=== PATIENT | female | born 1990 | race Caucasian/White ===

== ENCOUNTER 2017-10-03 16:43 | Inpatient (IN) | payer OTHER ==
[2017-10-03] MEDS ORDERED: Ondansetron 4 MG/2 ML SDV IVPUSH PRN (18:17)
[2017-10-03] MEDS ORDERED: Sodium Chloride 0.9% 10 ML Syringe FLUSH PRN (18:17)
[2017-10-03] MEDS ORDERED: Acetaminophen 325 MG Tab PO PRN (18:17)
[2017-10-03] MEDS ORDERED: Misoprostol 100 MCG Tab VAG PRN (18:17)
[2017-10-03] MEDS ORDERED: Lactated Ringers 1,000 ML IV SCH (18:30)
[2017-10-03] MEDS ORDERED: Oxytocin/Lactated Ringers 10 UNIT/1,000 ML BAG IV SCH (18:30)
--- NOTE | 2017-10-03 18:35 | PCM.LDHP ---
L&D History of Present Illness - General Date of Service: 10/03/17 Admit Problem/Dx: Patient Status Order with Admit Dx/Problem 10/03/17 18:17 Patient Status [ADT] Routine Admission Diagnosis/Problem Admission Diagnosis/Problem Gestational hypertension Source of Information: Patient History Limitations: Reports: No Limitations - History of Present Illness Introduction:: Leona is a 27-year-old at 37 weeks 5 days who presents after being seen this morning by Jill Stout and was noted to have elevated blood pressures in the clinic to 141/94. She had preeclampsia labs that were drawn that were within normal limits. She continue to monitor her blood pressures throughout the day and noted that they were in the 140s/80s to 90s. She was advised to go to labor and delivery for further evaluation. She denies any severe preeclamptic symptoms such as headache, vision disturbances or right upper quadrant pain. She reports that she has been having good movement. Denies feeling any contractions. Denies any leaking of fluid or vaginal bleeding. Present Illness Comments:: Leona is a 27-year-old at 37 weeks 5 days by LMP consistent with 7 week ultrasound. She has had routine care with Dr. Klein and Jill Stout since 7 weeks gestation. Her has been complicated by diet- controlled gestational diabetes. Her initial labs show a B+ blood type with negative antibody screen. Hematocrit on 04/03/2017 and 37.9 and hemoglobin of 12.9. Platelets were 331. She is rubella immune and RPR nonreactive. Hepatitis B surface antigen negative. HIV negative. Gonorrhea and chlamydia negative. Her 1 hour glucose test was elevated at 175 with 3 hour values of fasting 83, 1 hour 185, two-hour 166 and 3 hour of 118. Her hematocrit on 07/17/2017 was 34.8 and hemoglobin of 11.8. Late lids 274. GBS swab was negative. She had a 13 pound weight gain throughout . Of note she did have elevated blood pressures at 31 weeks with blood pressure 138/ 90 and also at 23 weeks with blood pressures of 150s/80s but this is felt to be due to incorrect cuff size at the 23 week visit. - Related Data Allergies/Adverse Reactions: Allergies Allergy/AdvReac Type Severity Reaction Status Date / Time Penicillins Allergy Rash Verified 10/03/17 18:21 Home Medications: Home Meds Ferrous Sulfate [Iron] 10/03/17 [History] Vits #93/Iron Fum/FA [ Formula Tablet] 10/03/17 [History] Past Medical History - Past Surgical History HEENT Surgical History: Reports: Tonsillectomy, Other (See Below) Other HEENT Surgeries/Procedures: Left neck cyst removed at age 7 Social & Family History - Family History Family Medical History: Noncontributory - Tobacco Use Smoking Status *Q: Never Smoker Tobacco Use Within Last Twelve Months: No - Alcohol Use Alcohol Use History: No - Recreational Drug Use Recreational Drug Use: No - Sexual History Sexual History: Reports: Single Partner - Living Situation & Occupation Living situation: Reports: , with Significant Other Occupation: Employed H&P Review of Systems - Review of Systems: Review Of Systems: See Below General: Denies: Fever, Chills HEENT: Reports: Sinus Congestion (Mild throughout ). Denies: Headaches , Sore Throat, Visual Changes Pulmonary: Denies: Shortness of Breath, Wheezing, Cough Cardiovascular: Denies: Chest Pain, Palpitations Gastrointestinal: Denies: Abdominal Pain, Constipation, Diarrhea, Nausea, Vomiting Genitourinary: Denies: Dysuria, Frequency, Burning, Pain, Urgency Musculoskeletal: Denies: Back Pain, Joint Pain, Muscle Pain Skin: Denies: Rash Psychiatric: Denies: Depression, Anxiety Neurological: Denies: Headache Hematologic/Lymphatic: Denies: Anemia, Easy Bleeding, Easy Bruising L&D Exam - Exam Exam: See Below - Vital Signs Vital Signs: Last Vital Signs Temp 36.8 C 10/03/17 17:35 Pulse 89 10/03/17 17:35 Resp 18 10/03/17 17:35 BP 154/84 H 10/03/17 17:35 Pulse Ox Weight: 79.197 kg - OB Specific Contraction Duration (sec): 45-60 Contraction Frequency (min): 2-4 Contraction Intensity: Mild Movement: Active Heart Tones: Present Heart Tones per Min: 130 (Positive accelerations, no decelerations) Heart Rate (FHR) Variability: Moderate (6-25 bmp) Presentation: Vertex Estimated Weight: 7-7.5 by Chuck's - Read Score Read Score Cervix Position: Midposition Read Score Consistency: Medium Read Score Effacement: >80% Read Score Dilation: 1-2 cm Read Score 's Station: -3 Read Score Total: 6 - Exam General: Alert, Oriented, Cooperative HEENT: Conjunctiva Clear, EOMI Neck: Supple, Trachea Midline Lungs: Clear to Auscultation, Normal Respiratory Effort Cardiovascular: Regular Rate, Regular Rhythm GI/Abdominal Exam: Soft, Non-Tender, No Distention Genitourinary: Normal external exam, Cervical dilitation. No: Cervix motion tenderness Back Exam: Normal Inspection. No: CVA Tenderness (L), CVA Tenderness (R) Extremities: Normal Inspection, Pedal Edema (1+ to lower shins) Skin: Warm, Dry, Intact Psychiatric: Alert, Normal Affect, Normal Mood - Patient Data Lab Results Last 24 hrs: Labs from this morning, limiting 17 at 08 35 WBC: 7.25 Hemoglobin: 12.9 Hematocrit: 37.4 Platelet: 229 CMP Sodium: 136 Potassium 4.0 Chloride: 104 Carbon dioxide: 21 BUN: 15 Creatinine: 0.6 AST: 16 ALT: 14 Alkaline phosphatase: 111 Uric acid: 5.6 Coagulation studies PT: 9.4 INR: 0.7 PTT: 27 Fibrinogen: 436 Urine Urine protein negative - Problem List (1) 37 weeks gestation of SNOMED Code(s): 50740154 ICD Code: Z3A.37 - 37 WEEKS GESTATION OF Status: Acute Current Visit: Yes (2) Gestational diabetes SNOMED Code(s): 95538057 ICD Code: O24.419 - GESTATIONAL DIABETES MELLITUS IN , UNSP CONTROL Status: Acute Current Visit: Yes (3) Gestational hypertension SNOMED Code(s): 25282384 ICD Code: O13.9 - GESTATIONAL HTN W/O SIGNIFICANT PROTEINURIA, UNSP TRIMESTER Status: Acute Current Visit: Yes Problem List Initiated/Reviewed/Updated: Yes Orders Last 24hrs: Active Orders 24 hr Category Date Time Status Patient Status [ADT] Routine ADT 10/03/17 18:17 Ordered Activity as Tolerated [RC] PFP Care 10/03/17 18:17 Ordered Bedrest [RC] ASDIRECTED Care 10/03/17 18:17 Ordered Blood Glucose Check, Bedside [RC] Q4HR Care 10/03/17 18:23 Ordered Communication Order [RC] ASDIRECTED Care 10/03/17 18:17 Ordered Communication Order [RC] ASDIRECTED Care 10/03/17 18:17 Ordered Communication Order [RC] ASDIRECTED Care 10/03/17 18:17 Ordered Communication Order [RC] ASDIRECTED Care 10/03/17 18:17 Ordered Communication Order [RC] ASDIRECTED Care 10/03/17 18:17 Ordered Heart Tones [RC] ASDIRECTED Care 10/03/17 18:18 Ordered Monitoring [RC] INTERMITTENT Care 10/03/17 18:17 Ordered Notify Provider Status Change [RC] ASDIRECTED Care 10/03/17 18:24 Ordered Notify Provider Vital Signs [RC] PRN Care 10/03/17 18:21 Ordered Notify Provider [RC] ASDIRECTED Care 10/03/17 18:17 Ordered Notify Provider [RC] ASDIRECTED Care 10/03/17 18:17 Ordered Notify Provider [RC] PFP Care 10/03/17 18:17 Ordered Notify Provider [RC] PRN Care 10/03/17 18:17 Ordered Oxygen Therapy [RC] PRN Care 10/03/17 18:17 Ordered Peripheral IV Care [RC] . DIRECTED Care 10/03/17 18:18 Ordered Pump Management, Intrathecal [RC] ASDIRECTED Care 10/03/17 18:20 Ordered Urinary Catheter Assessment [RC] ASDIRECTED Care 10/03/17 18:17 Ordered Vaginal Exam [RC] ASDIRECTED Care 10/03/17 18:17 Ordered Vital Signs [RC] ASDIRECTED Care 10/03/17 18:17 Ordered Vital Signs [RC] PER UNIT ROUTINE Care 10/03/17 18:17 Ordered Regular Diet [DIET] Diet 10/03/17 Dinner Ordered CREATININE,URINE RAND [URCHEM] Routine Lab 10/03/17 18:26 Uncollected PROTEIN,URINE RANDOM [URCHEM] Routine Lab 10/03/17 18:26 Uncollected Acetaminophen [Tylenol] Med 10/03/17 18:17 Ordered 650 mg PO Q6H PRN Lactated Ringers [Ringers, Lactated] 1,000 ml Med 10/03/17 18:30 Ordered IV ASDIRECTED Lactated Ringers [Ringers, Lactated] 1,000 ml Med 10/03/17 18:30 Ordered IV ASDIRECTED Misoprostol [Cytotec] Med 10/03/17 18:17 Ordered 25 mcg VAG Q4H PRN Ondansetron [Zofran] Med 10/03/17 18:17 Ordered 4 mg IVPUSH Q4H PRN Oxytocin/Lactated Ringers [Pitocin in LR 10 Units/1,000 Med 10/03/17 18:30 Ordered ML] 10 unit in 1,000 ml IV .CONTINUOUS Sodium Chloride 0.9% [Saline Flush] Med 10/03/17 18:17 Ordered 10 ml FLUSH ASDIRECTED PRN Blood Pressure [OM.PC] ASDIRECTED Oth 10/03/17 18:30 Ordered Deep Tendon Reflexes [WOMSER] ASDIRECTED Oth 10/03/17 18:30 Ordered Electronic Heart Tones Ext w TOCO [WOMSER] Oth 10/03/17 18:17 Ordered Routine Electronic Heart Tones Internal [WOMSER] Per Unit Oth 10/03/17 18:17 Ordered Routine Medication Administration Instruction [OM.PC] Oth 10/03/17 18:30 Ordered ASDIRECTED Peripheral IV Insertion Adult [OM.PC] Routine Oth 10/03/17 18:17 Ordered Peripheral IV Insertion Adult [OM.PC] Routine Oth 10/03/17 18:17 Ordered Resuscitation Status Routine Resus Stat 10/03/17 18:17 Ordered Assessment/Plan Comment:: Refer to observation for elective induction of labor Start induction of labor with Cytotec 25 mcg vaginally now and every 4 hours Intermittent monitoring while on Cytotec with monitoring for 30 minutes after placement of Cytotec and may ambulate as tolerated with category [address] IV and have Lactated Ringer's at 125 ml/hr if not tolerating regular diet May have regular diet while on Cytotec induction Activity as tolerated May have epidural as desired Plans to breast-feed after delivery Anticipate vaginal delivery unless otherwise indicated
[2017-10-03] MEDS ORDERED: Misoprostol 25 MCG (1/4 of 100 MCG) Tab ONE (18:55)
[2017-10-03] MEDS: Misoprostol 25 MCG (1/4 of 100 MCG) Tab VAG PRN (23:03)
[2017-10-04] MEDS: Misoprostol 25 MCG (1/4 of 100 MCG) Tab VAG PRN (03:13)
[2017-10-04] MEDS ORDERED: Misoprostol 25 MCG (1/4 of 100 MCG) Tab VAG ONE (06:15)
[2017-10-04] MEDS: Lactated Ringers 1,000 ML IV SCH ×2 (08:59→13:15)
--- NOTE | 2017-10-04 09:09 | PCM.PNLD ---
Labor Progress Note - VS & Meds Vital Signs: Last Vital Signs Temp 36.8 C 10/03/17 17:35 Pulse 89 10/03/17 17:35 Resp 18 10/03/17 17:35 BP 154/84 H 10/03/17 17:35 Pulse Ox Active Medications: Current Medications Acetaminophen (Tylenol) 650 mg PO Q6H PRN PRN Reason: Pain (Mild 1-3) and fever Lactated Ringer's (Ringers, Lactated) 1,000 mls @ 100 mls/hr IV ASDIRECTED ITA Last Admin: 10/04/17 08:59 Dose: 100 mls/hr Lactated Ringer's (Ringers, Lactated) 1,000 mls @ 40 mls/hr IV ASDIRECTED ITA Oxytocin/Lactated Ringer's (Pitocin In Lr 10 Units/1,000 Ml) 10 unit in 1,000 mls @ 100 mls/hr IV .CONTINUOUS ITA Ondansetron HCl (Zofran) 4 mg IVPUSH Q4H PRN PRN Reason: Nausea/Vomiting Sodium Chloride (Saline Flush) 10 ml FLUSH ASDIRECTED PRN PRN Reason: Keep Vein Open Discontinued Medications Misoprostol (Cytotec) 25 mcg VAG Q4H PRN PRN Reason: cervical ripening Last Admin: 10/03/17 19:02 Dose: 25 mcg Misoprostol (Cytotec) Confirm Administered Dose 25 mcg .ROUTE .STK-MED ONE Stop: 10/03/17 18:56 Last Admin: 10/03/17 19:07 Dose: Not Given Misoprostol (Cytotec) 25 mcg VAG Q4H PRN PRN Reason: cervical ripening Last Admin: 10/04/17 03:13 Dose: 25 mcg Misoprostol (Cytotec) 25 mcg VAG ONETIME ONE Stop: 10/04/17 06:16 - Uterine Contractions Uterine Monitoring Mode: External [place] Contraction Frequency (min): 1-3 Contraction Duration (sec): 60 Contraction Intensity: Moderate Uterine Resting Tone: Soft - Monitoring Monitor Mode: Doppler/Auscultation Heart Rate (FHR) Baseline: 135 Heart Rate (FHR) Variability: Moderate (6-25 bmp) Accelerations: Present, 15x15 Decelerations: None Strip Review: Category I - Vaginal Exam Dilation (cm): 3 Effacement (Percent): 80 Station: -1 Cervical Position: Anterior Sterile Vaginal Exam Performed By: Toney Roche - Labor Progress (Free Text) Labor Progress: Patient with induction using Cytotec with last dose given around 2 AM. Scheduled to receive next dose at around 6 AM but noted to have tachysystole with contractions about every minutes without distress. Nurse reported that the cervix was dilated 2 cm/70%/-2 at 6 AM. Repeat exam myself at around 8 :30 was 3 cm/80%/-1 patient making some change without augmentation and continues to have occasional tachysystole. We'll continue to monitor closely and consider starting on Pitocin if contractions continue space out.
[2017-10-04] MEDS ORDERED: ePHEDrine 50 MG/ML SDV IVPUSH PRN (09:18)
[2017-10-04] MEDS ORDERED: fentaNYL 100 MCG/2 ML SDV EPIDUR PRN (09:18)
[2017-10-04] MEDS ORDERED: diphenhydrAMINE 50 MG/ML SDV IVPUSH PRN (09:18)
[2017-10-04] MEDS ORDERED: Bupivacaine/fentaNYL/NS 100 ML Bag EPIDUR SCH (09:30)
--- NOTE | 2017-10-04 13:08 | PCM.PNLD ---
Labor Progress Note - VS & Meds Vital Signs: Last Vital Signs Temp 36.8 C 10/03/17 17:35 Pulse 89 10/03/17 17:35 Resp 18 10/03/17 17:35 BP 154/84 H 10/03/17 17:35 Pulse Ox Active Medications: Current Medications Acetaminophen (Tylenol) 650 mg PO Q6H PRN PRN Reason: Pain (Mild 1-3) and fever Diphenhydramine HCl (Benadryl) 25 mg IVPUSH Q6H PRN PRN Reason: Itching Ephedrine Sulfate (Ephedrine Sulfate) 5 mg IVPUSH ASDIRECTED PRN PRN Reason: HYPOTENTSION Fentanyl (Sublimaze) 100 mcg EPIDUR Q3H PRN PRN Reason: PAIN Fentanyl/Bupivacaine HCl (Fentanyl/Bupivacaine/Ns 2 Mcg-0.125% 100 Ml) 100 ml EPIDUR ASDIRECTED ITA Lactated Ringer's (Ringers, Lactated) 1,000 mls @ 100 mls/hr IV ASDIRECTED ITA Last Admin: 10/04/17 08:59 Dose: 100 mls/hr Lactated Ringer's (Ringers, Lactated) 1,000 mls @ 40 mls/hr IV ASDIRECTED ITA Oxytocin/Lactated Ringer's (Pitocin In Lr 10 Units/1,000 Ml) 10 unit in 1,000 mls @ 100 mls/hr IV .CONTINUOUS ITA Ondansetron HCl (Zofran) 4 mg IVPUSH Q4H PRN PRN Reason: Nausea/Vomiting Sodium Chloride (Saline Flush) 10 ml FLUSH ASDIRECTED PRN PRN Reason: Keep Vein Open Discontinued Medications Misoprostol (Cytotec) 25 mcg VAG Q4H PRN PRN Reason: cervical ripening Last Admin: 10/03/17 19:02 Dose: 25 mcg Misoprostol (Cytotec) Confirm Administered Dose 25 mcg .ROUTE .STK-MED ONE Stop: 10/03/17 18:56 Last Admin: 10/03/17 19:07 Dose: Not Given Misoprostol (Cytotec) 25 mcg VAG Q4H PRN PRN Reason: cervical ripening Last Admin: 10/04/17 03:13 Dose: 25 mcg Misoprostol (Cytotec) 25 mcg VAG ONETIME ONE Stop: 11/09/17 06:16 - Uterine Contractions Uterine Monitoring Mode: External [place] Contraction Frequency (min): 4-5 with couplets Contraction Duration (sec): 45-60 Contraction Intensity: Mild to Moderate Uterine Resting Tone: Soft - Monitoring Monitor Mode: Doppler/Auscultation Heart Rate (FHR) Baseline: 130 Heart Rate (FHR) Variability: Moderate (6-25 bmp) Accelerations: Present, 15x15 Decelerations: None Strip Review: Category I - Vaginal Exam Dilation (cm): 4 Effacement (Percent): 80 Station: -2 Cervical Position: Anterior Sterile Vaginal Exam Performed By: Toney Roche - Labor Progress (Free Text) Labor Progress: Continued to have some progress with cervical change but contraction pattern spacing out. Recommend that she start Pitocin for augmentation at this time. Patient with ruptured membranes earlier this morning continues to have clear fluid. Patient's cervix is 4/80%/-2 at this time.
[2017-10-04] MEDS ORDERED: Oxytocin/Lactated Ringers 10 UNIT/1,000 ML BAG IV SCH ×2 (13:15→22:47)
[2017-10-04] MEDS: Nalbuphine 20 MG/1 ML Amp IVPUSH PRN ×2 (16:57→19:48)
--- NOTE | 2017-10-04 17:48 | PCM.PNLD ---
Labor Progress Note - VS & Meds Vital Signs: Last Vital Signs Temp 36.8 C 10/03/17 17:35 Pulse 89 10/03/17 17:35 Resp 18 10/03/17 17:35 BP 154/84 H 10/03/17 17:35 Pulse Ox Active Medications: Current Medications Acetaminophen (Tylenol) 650 mg PO Q6H PRN PRN Reason: Pain (Mild 1-3) and fever Diphenhydramine HCl (Benadryl) 25 mg IVPUSH Q6H PRN PRN Reason: Itching Ephedrine Sulfate (Ephedrine Sulfate) 5 mg IVPUSH ASDIRECTED PRN PRN Reason: HYPOTENTSION Fentanyl (Sublimaze) 100 mcg EPIDUR Q3H PRN PRN Reason: PAIN Fentanyl/Bupivacaine HCl (Fentanyl/Bupivacaine/Ns 2 Mcg-0.125% 100 Ml) 100 ml EPIDUR ASDIRECTED ITA Lactated Ringer's (Ringers, Lactated) 1,000 mls @ 100 mls/hr IV ASDIRECTED ITA Last Admin: 10/04/17 13:15 Dose: 100 mls/hr Lactated Ringer's (Ringers, Lactated) 1,000 mls @ 40 mls/hr IV ASDIRECTED ITA Oxytocin/Lactated Ringer's (Pitocin In Lr 10 Units/1,000 Ml) 10 unit in 1,000 mls @ 100 mls/hr IV .CONTINUOUS ITA Oxytocin/Lactated Ringer's (Pitocin In Lr 10 Units/1,000 Ml) 10 unit in 1,000 mls @ 12 mls/hr IV TITRATE ITA; 2 MUNITS/MIN PRN Reason: Protocol Last Titration: 10/04/17 17:38 Dose: 12 munits/min, 72 mls/hr Nalbuphine HCl (Nubain) 10 mg IVPUSH Q2H PRN PRN Reason: Pain Last Admin: 10/04/17 16:57 Dose: 10 mg Ondansetron HCl (Zofran) 4 mg IVPUSH Q4H PRN PRN Reason: Nausea/Vomiting Sodium Chloride (Saline Flush) 10 ml FLUSH ASDIRECTED PRN PRN Reason: Keep Vein Open Discontinued Medications Misoprostol (Cytotec) 25 mcg VAG Q4H PRN PRN Reason: cervical ripening Last Admin: 10/03/17 19:02 Dose: 25 mcg Misoprostol (Cytotec) Confirm Administered Dose 25 mcg .ROUTE .STK-MED ONE Stop: 10/03/17 18:56 Last Admin: 10/03/17 19:07 Dose: Not Given Misoprostol (Cytotec) 25 mcg VAG Q4H PRN PRN Reason: cervical ripening Last Admin: 10/04/17 03:13 Dose: 25 mcg Misoprostol (Cytotec) 25 mcg VAG ONETIME ONE Stop: 10/04/17 06:16 Last Admin: 10/04/17 13:45 Dose: Not Given - Uterine Contractions Uterine Monitoring Mode: External [place] Contraction Frequency (min): 2-7 Contraction Duration (sec): 45 Contraction Intensity: Moderate to Strong Uterine Resting Tone: Soft - Monitoring Monitor Mode: Doppler/Auscultation Heart Rate (FHR) Baseline: 120 Heart Rate (FHR) Variability: Moderate (6-25 bmp) Accelerations: Present, 15x15 Decelerations: None Strip Review: Category I - Vaginal Exam Dilation (cm): 6 Effacement (Percent): 90 Station: -2 Cervical Position: Anterior Sterile Vaginal Exam Performed By: Toney Roche - Labor Progress (Free Text) Labor Progress: Continues to progress well. No concerns at this time. She may have meal at this time and then check FSBS 2 hours after meal. Start checking FSBS every 2 hours after this meal. FSBS have been normal. Consider IUPC if continues to have slow cervical change.
[2017-10-04] MEDS ORDERED: Lidocaine 1% 50 ML MDV ONE (20:54)
[2017-10-04] MEDS ORDERED: Misoprostol 200 MCG Tab ONE (21:53)
[2017-10-04] MEDS ORDERED: Carboprost Tromethamine 250 MCG/1 ML Amp ONE (21:55)
--- NOTE | 2017-10-04 22:37 | PCM.DEL ---
L & D Note - General Info Date of Service: 10/04/17 Mother's Due Date: 10/19/17 - Delivery Note Labor: Induced by Oxytocin Cervical Ripening Method: Misoprostil Delivery Outcome: Livebirth Delivery Method: Spontaneous Vaginal Delivery-Single Presentation: Left Occiput Anterior (ERIN) Nuchal Cord: Present. No: Reduced Prep: Povidone-Iodine (Betadine Anesthesia Type: Local Anesthetic: Lidocaine (Xylocaine) 1% Plain Local Anesthetic Volume: Other (10cc) Amniotic Fluid Description: Clear Episiotomy Type: None Laceration: 2nd Degree, Perineal (Right) Suture type: Vicryl Suture size: 3-0 Placenta: Intact, Spontaneous Cord: 3 Vessels Estimated Blood Loss: 400 Resuscitation Needed: No [place]: Bulb Syringe Provider: Phu Dove Score 1 min: 9 Score 5 min: 9 Second Stage Interventions: Reports: Pushing, Reverse Squat, Pushing, Knee Chest Position Delivery Comments (Free Text/Narrative):: Stage I: Leona Ramsey was admitted for induction of labor in the setting of gestational hypertension after she was found to have blood pressures into the 140s/80s to 90s on 10/03/2017. On admission her cervix was dilated to 1 cm. She was GBS negative. She was given 2 doses of Cytotec for induction and was planned to receive a third dose but was zan too regularly for placement. She had spontaneous rupture membranes with clear fluid in the morning of hospital day #2. She continued to labor until mid afternoon on hospital day #2 without any augmentation but her contractions began to space out. She was started on Pitocin for augmentation of her labor. She progressed to complete and pushing. Stage II: On 10/04/2017 she had a normal vaginal delivery of a live female at 2143. Apgars of 9 & 9. Weight of 2880 g (6 lbs 6 oz). Length of 20 inches. There was single nuchal cord but was unable to be reduced and delivered through. was delivered in ERIN position. The cord was doubly clamped and cut by father. was placed on mother's abdomen. Stage III: She had a spontaneous delivery of an intact placenta in Luis presentation. Three vessel cord. She was given pitocin and fundal massage. She had a second-degree right perineal laceration that was repaired with 3-0 Vicryl. She had some excessive bleeding with lower uterine segment atony. She was given 1000 mcg Cytotec buccally. She continued to have bleeding and clots were removed from the intrauterine cavity. She was given Hemabate 250 mcg IM. Mom and baby were stable to recovery. EBL of 400 mL and will plan to recheck CBC in the morning of day #1. Toney Roche MD 10:36 PM 10/04/2017 Induction Criteria - Read Score Read Score Dilation: 1-2 cm Read Score Effacement: >80% Read Score 's Station: -3 Read Score Consistency: Medium Read Score Cervix Position: Midposition Read Score Total: 6 Read Score Presenting Part: Reports: Cephalic - Induction Gestational Age >/= 39 wks: No Medical Indication: Gestational hypertension Estimated Pelvis: Reports: Adequate Reassuring Monitoring Strip: Yes Absence of Tachy Systole: Yes - Augmentation Estimated Pelvis: Reports: Adequate Weight Estimated:: Reports: AGA Reassuring Monitoring Strip: Yes Absence of Tachy Systole: Yes - General Info Date of Service: 10/04/17 Functional Status: Reports: Pain Controlled - Review of Systems General: Reports: No Symptoms HEENT: Reports: No Symptoms Pulmonary: Reports: No Symptoms Cardiovascular: Reports: No Symptoms Gastrointestinal: Reports: No Symptoms Genitourinary: Reports: No Symptoms Musculoskeletal: Reports: No Symptoms Skin: Reports: No Symptoms Neurological: Reports: No Symptoms Psychiatric: Reports: No Symptoms - Patient Data Vitals - Most Recent: Last Vital Signs Temp 36.8 C 10/03/17 17:35 Pulse 89 10/03/17 17:35 Resp 18 10/03/17 17:35 BP 154/84 H 10/03/17 17:35 Pulse Ox Weight - Most Recent: 79.197 kg I&O - Last 24 Hours: Intake & Output 10/04/17 10/04/17 10/04/17 06:59 14:59 22:59 Intake Total 0 Balance 0 Med Orders - Current: Current Medications Acetaminophen (Tylenol) 650 mg PO Q6H PRN PRN Reason: Pain (Mild 1-3) and fever Diphenhydramine HCl (Benadryl) 25 mg IVPUSH Q6H PRN PRN Reason: Itching Ephedrine Sulfate (Ephedrine Sulfate) 5 mg IVPUSH ASDIRECTED PRN PRN Reason: HYPOTENTSION Fentanyl (Sublimaze) 100 mcg EPIDUR Q3H PRN PRN Reason: PAIN Fentanyl/Bupivacaine HCl (Fentanyl/Bupivacaine/Ns 2 Mcg-0.125% 100 Ml) 100 ml EPIDUR ASDIRECTED ITA Lactated Ringer's (Ringers, Lactated) 1,000 mls @ 100 mls/hr IV ASDIRECTED ITA Last Admin: 10/04/17 13:15 Dose: 100 mls/hr Lactated Ringer's (Ringers, Lactated) 1,000 mls @ 40 mls/hr IV ASDIRECTED ITA Oxytocin/Lactated Ringer's (Pitocin In Lr 10 Units/1,000 Ml) 10 unit in 1,000 mls @ 100 mls/hr IV .CONTINUOUS ITA Last Admin: 10/04/17 22:34 Dose: 100 mls/hr Oxytocin/Lactated Ringer's (Pitocin In Lr 10 Units/1,000 Ml) 10 unit in 1,000 mls @ 12 mls/hr IV TITRATE ITA; 2 MUNITS/MIN PRN Reason: Protocol Last Titration: 10/04/17 18:30 Dose: 16 munits/min, 96 mls/hr Nalbuphine HCl (Nubain) 10 mg IVPUSH Q2H PRN PRN Reason: Pain Last Admin: 10/04/17 19:48 Dose: 10 mg Ondansetron HCl (Zofran) 4 mg IVPUSH Q4H PRN PRN Reason: Nausea/Vomiting Sodium Chloride (Saline Flush) 10 ml FLUSH ASDIRECTED PRN PRN Reason: Keep Vein Open Discontinued Medications Carboprost Tromethamine (Hemabate Ds) Confirm Administered Dose 250 mcg .ROUTE .STK-MED ONE Stop: 10/04/17 21:56 Last Admin: 10/04/17 22:00 Dose: 250 mcg Lidocaine HCl (Xylocaine 1%) Confirm Administered Dose 50 ml .ROUTE .STK-MED ONE Stop: 10/04/17 20:55 Last Admin: 10/04/17 22:32 Dose: 50 ml Misoprostol (Cytotec) 25 mcg VAG Q4H PRN PRN Reason: cervical ripening Last Admin: 10/03/17 19:02 Dose: 25 mcg Misoprostol (Cytotec) Confirm Administered Dose 25 mcg .ROUTE .STK-MED ONE Stop: 10/03/17 18:56 Last Admin: 10/03/17 19:07 Dose: Not Given Misoprostol (Cytotec) 25 mcg VAG Q4H PRN PRN Reason: cervical ripening Last Admin: 10/04/17 03:13 Dose: 25 mcg Misoprostol (Cytotec) 25 mcg VAG ONETIME ONE Stop: 10/04/17 06:16 Last Admin: 10/04/17 13:45 Dose: Not Given Misoprostol (Cytotec) Confirm Administered Dose 1,000 mcg .ROUTE .STK-MED ONE Stop: 10/04/17 21:54 Last Admin: 10/04/17 21:56 Dose: 1,000 mcg - Exam General: Alert, Oriented HEENT: EOMI Neck: Supple Lungs: Normal Respiratory Effort Cardiovascular: Regular Rate, Regular Rhythm GI/Abdominal Exam: Soft, Non-Tender (Female) Exam: Normal External Exam Skin: Warm, Dry, Intact - Problem List & Annotations (1) 37 weeks gestation of SNOMED Code(s): 54469647 Code(s): Z3A.37 - 37 WEEKS GESTATION OF Status: Acute Current Visit: Yes (2) Gestational diabetes SNOMED Code(s): 71085599 Code(s): O24.419 - GESTATIONAL DIABETES MELLITUS IN , UNSP CONTROL Status: Acute Current Visit: Yes (3) Gestational hypertension SNOMED Code(s): 99167243 Code(s): O13.9 - GESTATIONAL HTN W/O SIGNIFICANT PROTEINURIA, UNSP TRIMESTER Status: Acute Current Visit: Yes (4) Vaginal delivery SNOMED Code(s): 481169957 Code(s): O80 - ENCOUNTER FOR FULL-TERM UNCOMPLICATED DELIVERY Status: Acute Current Visit: Yes (5) Second degree laceration of perineum, delivered, current hospitalization SNOMED Code(s): 791665826 Code(s): O70.1 - SECOND DEGREE PERINEAL LACERATION DURING DELIVERY Status: Acute Current Visit: Yes - Problem List Review Problem List Initiated/Reviewed/Updated: Yes - My Orders Last 24 Hours: My Active Orders 10/04/17 13:15 Oxytocin/Lactated Ringers [Pitocin in LR 10 Units/1,000 ML] 10 unit in 1,000 ml IV TITRATE 10/04/17 16:45 Nalbuphine [Nubain] 10 mg IVPUSH Q2H PRN 10/04/17 22:22 Patient Status Manage Transfer [TRANSFER] Routine - Assessment Assessment:: 27-year-old G1 now P1001 status post following induction of labor for gestational hypertension complicated by gestational diabetes, diet controlled - Plan Plan:: Continue to monitor vitals Continue Pitocin for bleeding Regular diet Assist with breast-feeding as needed IV fluids at 125 mL/h until tolerating regular diet Anticipate discharge home on day #2
[2017-10-04] MEDS ORDERED: Lanolin 100% Cream 7 GM Tube TOP PRN (22:47)
[2017-10-04] MEDS ORDERED: Benzocaine/Menthol 20%-0.5% Spray 56 GM Canister TOP PRN (22:47)
[2017-10-04] MEDS ORDERED: Lactated Ringers 1,000 ML IV SCH (22:47)
[2017-10-04] MEDS ORDERED: Magnesium Hydroxide 400 MG/5 ML Susp 30 ML Cup PO PRN (22:47)
[2017-10-04] MEDS ORDERED: Docusate Sodium 100 MG Cap PO PRN (22:47)
[2017-10-04] MEDS ORDERED: Sodium Chloride 0.9% 10 ML Syringe FLUSH PRN (22:47)
[2017-10-04] MEDS ORDERED: Misoprostol 200 MCG Tab PO PRN (22:47)
[2017-10-04] MEDS ORDERED: Witch Hazel Medicated Pads 100/Jar TOP PRN (22:47)
[2017-10-04] MEDS ORDERED: Ibuprofen 600 MG Tab PO PRN (22:47)
[2017-10-04] MEDS ORDERED: Acetaminophen 325 MG Tab PO PRN (22:47)
[2017-10-04] MEDS ORDERED: Hydrocortisone Acetate 25 MG Supp RECTAL PRN (22:47)
[2017-10-04] MEDS ORDERED: Atropine/Diphenoxylate 0.025-2.5 MG Tab PO ONE (22:47)
[2017-10-04] MEDS ORDERED: Carboprost Tromethamine 250 MCG/1 ML Amp IM PRN (22:47)
[2017-10-05] MEDS ORDERED: Atropine/Diphenoxylate 0.025-2.5 MG Tab PO ONE (04:00)
--- NOTE | 2017-10-05 09:31 | PCM.SN ---
- Free Text/Narrative Note: Post Progress Note PPD # 1 Subjective: Doing well overall. Ambulating without difficulty. Denies any lightheadedness or dizziness with ambulation. Lochia minimal. Voiding without difficulty. Tolerating regular diet without any nausea or vomiting. Pain controlled with oral medications. Breast feeding with minimal difficulty. Reports that she felt like she had a mild fever this morning. Objective: Vitals: Last Vital Signs Temp 37.1 C 10/05/17 05:27 Pulse 101 H 10/05/17 06:20 Resp 14 10/05/17 04:15 BP 140/92 H 10/05/17 04:15 Pulse Ox 98 10/05/17 06:20 Physical Exam General: Alert and oriented, no acute distress Lungs: Clear to auscultation bilaterally Heart: Regular rate and rhythm Abdomen: Soft, minimal appropriate tenderness, non-distended, fundus midline, nontender, and below the umbilicus Extremities: No edema Laboratory Tests 10/03/17 10/05/17 Range/Units 18:55 04:06 WBC 20.82 H (3.98-10.04) K/mm3 RBC 3.48 L (3.98-5.22) M/mm3 Hgb 10.3 L (11.2-15.7) gm/L Hct 29.9 L (34.1-44.9) % MCV 85.9 (79.4-94.8) fl MCH 29.6 (25.6-32.2) pg MCHC 34.4 (32.2-35.5) g/dl RDW Std Deviation 40.7 (36.4-46.3) fL Plt Count 232 (182-369) K/mm3 MPV 8.9 L (9.4-12.3) fl Neut % (Auto) 86.0 H (34.0-71.1) % Lymph % (Auto) 6.6 L (19.3-51.7) % [place] % (Auto) 7.0 (4.7-12.5) % Eos % (Auto) 0 L (0.7-5.8) Baso % (Auto) 0.0 L (0.1-1.2) % Neut # (Auto) 17.88 H (1.56-6.13) K/mm3 Lymph # (Auto) 1.38 (1.18-3.74) K/mm3 [place] # (Auto) 1.46 H (0.24-0.36) K/mm3 Eos # (Auto) 0.01 L (0.04-0.36) K/mm3 Baso # (Auto) 0.01 (0.01-0.08) K/mm3 Manual Slide Review Normal smear Ur Random Creatinine 71.4 (30.0-125.0) mg/dL U Random Total Protein < 6.0 (0.0-11.8) mg/dL ASSESSMENT: 27-year-old female G 1 P 1001 s/p normal vaginal delivery PPD #1, complicated by gestational hypertension and diet-controlled gestational diabetes PLAN: Doing well Patient with mild range blood pressures. Continue to monitor closely and will treat as indicated. Breast feeding with minimal difficulty. Assist as needed Lochia minimal. Continue to monitor for appropriate lochia. Patient with drop in hemoglobin from 12.9 on admission to 10.3 after delivery. Patient started on iron supplementation with breakfast. Continue routine care with close monitoring of blood pressures Anticipate discharge home tomorrow Toney Roche MD 9:28 AM 10/05/2017
[2017-10-05] MEDS: Prenatal Multivitamin with Calcium/Folic Acid/Iron Tab PO SCH (09:37)
[2017-10-05] MEDS: Ferrous Sulfate 325 MG Tab PO SCH (09:37)
--- NOTE | 2017-10-06 09:31 | PCM.SN ---
- Free Text/Narrative Note: Post Progress Note PPD # 2 Subjective: Doing well overall. Ambulating without difficulty. Lochia minimal and decreasing from yesterday. Voiding without difficulty. Tolerating regular diet without any nausea or vomiting. Pain is minimal and has not required any oral medications at this time. Breast feeding with minimal difficulty. Denies any fevers or chills. Denies any lightheadedness or dizziness with ambulation. Objective: Vitals: Last Vital Signs Temp 36.9 C 10/06/17 05:03 Pulse 88 10/06/17 05:03 Resp 16 10/06/17 05:03 BP 133/86 10/06/17 05:03 Pulse Ox 97 10/06/17 05:03 Physical Exam General: Alert and oriented, no acute distress Lungs: Clear to auscultation bilaterally Heart: Regular rate and rhythm Abdomen: Soft, minimal appropriate tenderness, non-distended, fundus midline, nontender, and below the umbilicus Extremities: No edema ASSESSMENT: 27-year-old female G 1 P 1001 s/p normal vaginal delivery PPD #2, complicated by gestational hypertension and diet-controlled gestational diabetes PLAN: Doing well Breast feeding with minimal difficulty. Assist as needed Lochia minimal. Continue to monitor for appropriate lochia. Continue routine care Continue to monitor blood pressures closely. Patient with several mild range blood pressures but improving from previous day. Patient follow-up in 2 weeks for and blood pressure check. Anticipate discharge home today Toney Roche MD 9:30 AM 10/06/2017
--- NOTE | 2017-10-06 09:39 | PCM.DCSUM1 ---
Discharge Summary - Hospital Course Free Text/Narrative:: Stage I: Leona Ramsey was admitted for induction of labor in the setting of gestational hypertension after she was found to have blood pressures into the 140s/80s to 90s on 10/03/2017. On admission her cervix was dilated to 1 cm. She was GBS negative. She was given 2 doses of Cytotec for induction and was planned to receive a third dose but was zan too regularly for placement. She had spontaneous rupture membranes with clear fluid in the morning of hospital day #2. She continued to labor until mid afternoon on hospital day #2 without any augmentation but her contractions began to space out. She was started on Pitocin for augmentation of her labor. She progressed to complete and pushing. Stage II: On 10/04/2017 she had a normal vaginal delivery of a live female infant at 2143. Apgars of 9 & 9. Weight of 2880 g (6 lbs 6 oz). Length of 20 inches. There was single nuchal cord but was unable to be reduced and delivered through. was delivered in ERIN position. The cord was doubly clamped and cut by father. was placed on mother's abdomen. Stage III: She had a spontaneous delivery of an intact placenta in Luis presentation. Three vessel cord. She was given pitocin and fundal massage. She had a second-degree right perineal laceration that was repaired with 3-0 Vicryl. She had some excessive bleeding with lower uterine segment atony. She was given 1000 mcg Cytotec buccally. She continued to have bleeding and clots were removed from the intrauterine cavity. She was given Hemabate 250 mcg IM. Mom and baby were stable to recovery. EBL of 400 mL. HPI Initial Comments: Stage I: Leona Ramsey was admitted for induction of labor in the setting of gestational hypertension after she was found to have blood pressures into the 140s/80s to 90s on 10/03/2017. On admission her cervix was dilated to 1 cm. She was GBS negative. She was given 2 doses of Cytotec for induction and was planned to receive a third dose but was zan too regularly for placement. She had spontaneous rupture membranes with clear fluid in the morning of hospital day #2. She continued to labor until mid afternoon on hospital day #2 without any augmentation but her contractions began to space out. She was started on Pitocin for augmentation of her labor. She progressed to complete and pushing. Stage II: On 10/04/2017 she had a normal vaginal delivery of a live female infant at 2143. Apgars of 9 & 9. Weight of 2880 g (6 lbs 6 oz). Length of 20 inches. There was single nuchal cord but was unable to be reduced and delivered through. was delivered in ERIN position. The cord was doubly clamped and cut by father. was placed on mother's abdomen. Stage III: She had a spontaneous delivery of an intact placenta in Luis presentation. Three vessel cord. She was given pitocin and fundal massage. She had a second-degree right perineal laceration that was repaired with 3-0 Vicryl. She had some excessive bleeding with lower uterine segment atony. She was given 1000 mcg Cytotec buccally. She continued to have bleeding and clots were removed from the intrauterine cavity. She was given Hemabate 250 mcg IM. Mom and baby were stable to recovery. EBL of 400 mL. Brief History: Stage I: Leona Ramsey was admitted for induction of labor in the setting of gestational hypertension after she was found to have blood pressures into the 140s/80s to 90s on 10/03/2017. On admission her cervix was dilated to 1 cm. She was GBS negative. She was given 2 doses of Cytotec for induction and was planned to receive a third dose but was zan too regularly for placement. She had spontaneous rupture membranes with clear fluid in the morning of hospital day #2. She continued to labor until mid afternoon on hospital day #2 without any augmentation but her contractions began to space out. She was started on Pitocin for augmentation of her labor. She progressed to complete and pushing. Stage II: On 10/04/2017 she had a normal vaginal delivery of a live female infant at 2143. Apgars of 9 & 9. Weight of 2880 g (6 lbs 6 oz). Length of 20 inches. There was single nuchal cord but was unable to be reduced and delivered through. Infant was delivered in ERIN position. The cord was doubly clamped and cut by father. was placed on mother's abdomen. Stage III: She had a spontaneous delivery of an intact placenta in Luis presentation. Three vessel cord. She was given pitocin and fundal massage. She had a second-degree right perineal laceration that was repaired with 3-0 Vicryl. She had some excessive bleeding with lower uterine segment atony. She was given 1000 mcg Cytotec buccally. She continued to have bleeding and clots were removed from the intrauterine cavity. She was given Hemabate 250 mcg IM. Mom and baby were stable to recovery. EBL of 400 mL. - Discharge Data Discharge Date: 10/06/17 Discharge Disposition: Home, Self-Care 01 Condition: Good - Discharge Diagnosis/Problem(s) (1) 37 weeks gestation of SNOMED Code(s): 35274697 ICD Code: Z3A.37 - 37 WEEKS GESTATION OF Status: Acute Current Visit: Yes (2) Gestational diabetes SNOMED Code(s): 64164553 ICD Code: O24.419 - GESTATIONAL DIABETES MELLITUS IN , UNSP CONTROL Status: Acute Current Visit: Yes (3) Gestational hypertension SNOMED Code(s): 18272993 ICD Code: O13.9 - GESTATIONAL HTN W/O SIGNIFICANT PROTEINURIA, UNSP TRIMESTER Status: Acute Current Visit: Yes (4) Vaginal delivery SNOMED Code(s): 417670529 ICD Code: O80 - ENCOUNTER FOR FULL-TERM UNCOMPLICATED DELIVERY Status: Acute Current Visit: Yes (5) Second degree laceration of perineum, delivered, current hospitalization SNOMED Code(s): 351391768 ICD Code: O70.1 - SECOND DEGREE PERINEAL LACERATION DURING DELIVERY Status : Acute Current Visit: Yes - Patient Summary/Data Complications: None Consults: None Hospital Course: Stage I: Leona Ramsey was admitted for induction of labor in the setting of gestational hypertension after she was found to have blood pressures into the 140s/80s to 90s on 10/03/2017. On admission her cervix was dilated to 1 cm. She was GBS negative. She was given 2 doses of Cytotec for induction and was planned to receive a third dose but was zan too regularly for placement. She had spontaneous rupture membranes with clear fluid in the morning of hospital day #2. She continued to labor until mid afternoon on hospital day #2 without any augmentation but her contractions began to space out. She was started on Pitocin for augmentation of her labor. She progressed to complete and pushing. Stage II: On 10/04/2017 she had a normal vaginal delivery of a live female at 2143. Apgars of 9 & 9. Weight of 2880 g (6 lbs 6 oz). Length of 20 inches. There was single nuchal cord but was unable to be reduced and delivered through. was delivered in ERIN position. The cord was doubly clamped and cut by father. Infant was placed on mother's abdomen. Stage III: She had a spontaneous delivery of an intact placenta in Luis presentation. Three vessel cord. She was given pitocin and fundal massage. She had a second-degree right perineal laceration that was repaired with 3-0 Vicryl. She had some excessive bleeding with lower uterine segment atony. She was given 1000 mcg Cytotec buccally. She continued to have bleeding and clots were removed from the intrauterine cavity. She was given Hemabate 250 mcg IM. Mom and baby were stable to recovery. EBL of 400 mL. Patient was doing well on day #1. She was meeting all milestones. She was ambulating without difficulty. She is tolerating regular diet without any nausea or vomiting. Her lochia was minimal. She reported that she had a mild fever on the morning of postoperative day #1 but no recorded fever and her vital signs. She continued to have several mild range blood pressures but none greater than 150 mmHg systolic or 100 mmHg diastolic requiring treatment. She is breast-feeding without difficulty. On day #2 she continued be doing well and was meeting all the above milestones. She desired to be discharged home. She will follow up with Dr. Klein, Jill Stout or Dr. Roche in 2 weeks for check. - Patient Instructions Diet: Regular Diet as Tolerated Activity: As Tolerated Activity, Other: Nothing in the vagina for 2 weeks Driving: May Drive Today Showering/Bathing: May Shower, No Tub Bathing/Swimming Notify Provider of: Fever, Increased Pain, Swelling and Redness, Drainage, Nausea and/or Vomiting - Discharge Plan Home Medications: Home Meds Ferrous Sulfate [Iron] 10/03/17 [History] Vits #93/Iron Fum/FA [ Formula Tablet] 10/03/17 [History] Acetaminophen [Tylenol] 650 mg PO Q6H PRN tablet 10/06/17 [Rx] Benzocaine/Menthol [Dermoplast Pain Relief [place]] 1 spray TOP ASDIRECTED PRN canister 10/06/17 [Rx] Docusate Sodium [Colace] 100 mg PO BID PRN cap 10/06/17 [Rx] Hydrocortisone Acetate [Anucort-HC] 25 mg RECTAL BID PRN supp 10/06/17 [Rx] Ibuprofen [IJD: Ibuprofen] 600 mg PO Q6H PRN tablet 10/06/17 [Rx] Lanolin [Lansinoh HPA] 1 applic TOP ASDIRECTED PRN tube 10/06/17 [Rx] Brittny Clemente [Tucks] 1 pad TOP ASDIRECTED PRN pad 10/06/17 [Rx] Patient Handouts: Vaginal Delivery, Home Care Instructions for Mom, Vaginal Delivery, Care After, Pelvic Rest, Care of a Perineal Tear, Care After Vaginal Delivery Referrals: Huy Klein MD [Physician] - (Follow-up with either Dr. Klein, Jill Stout or Dr. Roche in 2 weeks for check.) Toney Roche MD [Primary Care Provider] - - Discharge Summary/Plan Comment DC Time >30 min.: No - Patient Data Vitals - Most Recent: Last Vital Signs Temp 36.9 C 10/06/17 05:03 Pulse 88 10/06/17 05:03 Resp 16 10/06/17 05:03 BP 133/86 10/06/17 05:03 Pulse Ox 97 10/06/17 05:03 Weight - Most Recent: 79.197 kg I&O - Last 24 hours: Intake & Output 10/05/17 10/06/17 10/06/17 22:59 06:59 14:59 Intake Total 300 Balance 300 Med Orders - Current: Current Medications Acetaminophen (Tylenol) 650 mg PO Q6H PRN PRN Reason: mild pain or fever Last Admin: 10/05/17 04:18 Dose: 650 mg Benzocaine/Menthol (Dermoplast Pain Relief [place]) 0 gm TOP ASDIRECTED PRN PRN Reason: Perineal Comfort Measure Last Admin: 10/05/17 00:57 Dose: 1 can Carboprost Tromethamine (Hemabate Ds) 250 mcg IM ASDIRECTED PRN PRN Reason: Excessive vaginal bleeding Docusate Sodium (Colace) 100 mg PO BID PRN PRN Reason: Constipation Emollient Ointment (Lansinoh Hpa) 0 gm TOP ASDIRECTED PRN PRN Reason: Sore Nipples Ferrous Sulfate (Ferrous Sulfate) 325 mg PO WITHBREAKFAST PENDING SALE TO [facility] Last Admin: 10/05/17 09:37 Dose: 325 mg Hydrocortisone Acetate (Anucort-Hc) 25 mg RECTAL BID PRN PRN Reason: Hemorrhoid pain Lactated Ringer's (Ringers, Lactated) 1,000 mls @ 125 mls/hr IV ASDIRECTED PENDING SALE TO [facility] Oxytocin/Lactated Ringer's (Pitocin In Lr 10 Units/1,000 Ml) 10 unit in 1,000 mls @ 100 mls/hr IV TITRATE ITA PRN Reason: Protocol Ibuprofen (Motrin) 600 mg PO Q6H PRN PRN Reason: Mild pain or fever Magnesium Hydroxide (Milk Of Magnesia) 30 ml PO BEDTIME PRN PRN Reason: Constipation Misoprostol (Cytotec) 1,000 mcg PO ONETIME PRN PRN Reason: excessive vaginal bleeding Prenat Multivit/Printing Pressman/Iron/Folic Ac ( Plus Iron) 1 each PO DAILY PENDING SALE TO [facility] Last Admin: 10/05/17 09:37 Dose: 1 each Sodium Chloride (Saline Flush) 10 ml FLUSH ASDIRECTED PRN PRN Reason: Keep Vein Open Witch Chyna (Tucks) 1 pad TOP ASDIRECTED PRN PRN Reason: Hemorrhoid pain Last Admin: 10/05/17 00:57 Dose: 1 jar Discontinued Medications Acetaminophen (Tylenol) 650 mg PO Q6H PRN PRN Reason: Pain (Mild 1-3) and fever Carboprost Tromethamine (Hemabate Ds) Confirm Administered Dose 250 mcg .ROUTE .STK-MED ONE Stop: 10/04/17 21:56 Last Admin: 10/04/17 22:00 Dose: 250 mcg Diphenhydramine HCl (Benadryl) 25 mg IVPUSH Q6H PRN PRN Reason: Itching Diphenoxylate HCl/Atropine (Lomotil 0.025-2.5 Mg) 1 tab PO ONETIME ONE Stop: 10/04/17 22:48 Last Admin: 10/05/17 02:54 Dose: Not Given Diphenoxylate HCl/Atropine (Lomotil 0.025-2.5 Mg) 1 tab PO ONETIME ONE Stop: 10/05/17 04:01 Last Admin: 10/05/17 04:16 Dose: 1 tab Ephedrine Sulfate (Ephedrine Sulfate) 5 mg IVPUSH ASDIRECTED PRN PRN Reason: HYPOTENTSION Fentanyl (Sublimaze) 100 mcg EPIDUR Q3H PRN PRN Reason: PAIN Fentanyl/Bupivacaine HCl (Fentanyl/Bupivacaine/Ns 2 Mcg-0.125% 100 Ml) 100 ml EPIDUR ASDIRECTED ITA Lactated Ringer's (Ringers, Lactated) 1,000 mls @ 100 mls/hr IV ASDIRECTED ITA Last Admin: 10/04/17 13:15 Dose: 100 mls/hr Lactated Ringer's (Ringers, Lactated) 1,000 mls @ 40 mls/hr IV ASDIRECTED ITA Oxytocin/Lactated Ringer's (Pitocin In Lr 10 Units/1,000 Ml) 10 unit in 1,000 mls @ 100 mls/hr IV .CONTINUOUS ITA Last Admin: 10/04/17 22:34 Dose: 100 mls/hr Oxytocin/Lactated Ringer's (Pitocin In Lr 10 Units/1,000 Ml) 10 unit in 1,000 mls @ 12 mls/hr IV TITRATE ITA; 2 MUNITS/MIN PRN Reason: Protocol Last Titration: 10/04/17 18:30 Dose: 16 munits/min, 96 mls/hr Lidocaine HCl (Xylocaine 1%) Confirm Administered Dose 50 ml .ROUTE .STK-MED ONE Stop: 10/04/17 20:55 Last Admin: 10/04/17 22:32 Dose: 50 ml Misoprostol (Cytotec) 25 mcg VAG Q4H PRN PRN Reason: cervical ripening Last Admin: 10/03/17 19:02 Dose: 25 mcg Misoprostol (Cytotec) Confirm Administered Dose 25 mcg .ROUTE .STK-MED ONE Stop: 10/03/17 18:56 Last Admin: 10/03/17 19:07 Dose: Not Given Misoprostol (Cytotec) 25 mcg VAG Q4H PRN PRN Reason: cervical ripening Last Admin: 10/04/17 03:13 Dose: 25 mcg Misoprostol (Cytotec) 25 mcg VAG ONETIME ONE Stop: 10/04/17 06:16 Last Admin: 10/04/17 13:45 Dose: Not Given Misoprostol (Cytotec) Confirm Administered Dose 1,000 mcg .ROUTE .STK-MED ONE Stop: 10/04/17 21:54 Last Admin: 10/04/17 21:56 Dose: 1,000 mcg Nalbuphine HCl (Nubain) 10 mg IVPUSH Q2H PRN PRN Reason: Pain Last Admin: 10/04/17 19:48 Dose: 10 mg Ondansetron HCl (Zofran) 4 mg IVPUSH Q4H PRN PRN Reason: Nausea/Vomiting Sodium Chloride (Saline Flush) 10 ml FLUSH ASDIRECTED PRN PRN Reason: Keep Vein Open *Q Meaningful Use (DIS) - VTE *Q VTE Criteria *Q: - Stroke *Q Stroke Criteria *Q: - AMI *Q AMI Criteria *Q:
[2017-10-06] MEDS: Prenatal Multivitamin with Calcium/Folic Acid/Iron Tab PO SCH (09:49)
[2017-10-06] MEDS: Ferrous Sulfate 325 MG Tab PO SCH (09:49)
[2017-10-06 10:42] VITALS: BP 136/90
== END 2017-10-06 11:20 | disposition home or self-care (01) | DRG 775 ==
LOC: JD.OBCHECK 16:43 → JD.OB 16:51 → JD.OBCHECK 19:09 → JD.OB 19:10 → OBSVTOIN 10-04 21:43 → JD.OB 10-04 21:43
PROVIDERS: ADMIT Obstetrics & Gynecology; ATTEND Obstetrics & Gynecology
PROC: 10E0XZZ Delivery of Products of Conception, External Approach (ICD-10-PCS; principal; 2017-10-04)
PROC: 3E0P7VZ Introduction of Hormone into Female Reproductive, Via Natural or Artificial Opening (ICD-10-PCS; 2017-10-04)
DX: O13.4 Gestational [pregnancy-induced] hypertension without significant proteinuria, complicating childbirth (principal); Z37.0 Single live birth; O24.429 Gestational diabetes mellitus in childbirth, unspecified control; O69.81X0 Labor and delivery complicated by cord around neck, without compression, not applicable or unspecified; O70.1 Second degree perineal laceration during delivery; Z3A.38 38 weeks gestation of pregnancy; Z88.0 Allergy status to penicillin
CPT/HCPCS: 36415; 59300; 59409; 80053; 81003; 82570; 84156; 84550; 85025; 85362; 85384; 85610; 85730; A9270-GY; J2300; J2590; J7120

== ENCOUNTER 2017-10-27 15:35 | Emergency (ER) | payer OTHER ==
[2017-10-27 16:15] VITALS: BP 119/82
--- NOTE | 2017-10-27 17:09 | EDM.PDOC ---
ED HPI GENERAL MEDICAL PROBLEM - General Chief Complaint: Fever Stated Complaint: FEVER Time Seen by Provider: 10/27/17 16:14 Source of Information: Reports: Patient History Limitations: Reports: No Limitations - History of Present Illness INITIAL COMMENTS - FREE TEXT/NARRATIVE: The patient presents with a fever. She had a temperature of 105 at home. She has a normal temperature here. She has some chills and body aches. She denies runny nose, congestion, sore throat, cough, chest pain, abdominal pain, nausea, vomiting, dysuria, or vaginal drainage. She had a baby by vaginal delivery 3 weeks ago. She had a tear but she has no drainage or discharge. She says she has some pain to her right lateral breast with some erythema and mild edema. She is currently breast feeding. Her baby is having some trouble latching on so she has been pumping. She does not notice any abnormal nipple discharge. The symptoms started yesterday. Onset: Gradual Duration: Day(s): (Yesterday) Location: Reports: Other (Right breast) Quality: Reports: Ache Severity: Moderate Improves with: Reports: None Worsens with: Reports: None Context: Reports: Other (Breast feeding) Associated Symptoms: Reports: Fever/Chills. Denies: Chest Pain, Cough, Headaches, Nausea/Vomiting, Shortness of Breath, Weakness Right Breast Pain Score (Numeric/FACES): 5 - Related Data Allergies Allergy/AdvReac Type Severity Reaction Status Date / Time Penicillins Allergy Rash Verified 10/03/17 18:21 Home Meds: Home Meds Ferrous Sulfate [Iron] 1 tab PO DAILY 10/03/17 [History] Vits #93/Iron Fum/FA [ Formula Tablet] 1 tab PO DAILY 10/03/17 [History] Acetaminophen [Tylenol] 650 mg PO Q6H PRN tablet 10/06/17 [Rx] Ibuprofen [IJD: Ibuprofen] 600 mg PO Q6H PRN tablet 10/06/17 [Rx] Lanolin [Lansinoh HPA] 1 applic TOP ASDIRECTED PRN tube 10/06/17 [Rx] Cephalexin [Keflex] 500 mg PO Q6HR #40 cap 10/27/17 [Rx] Past Medical History Genitourinary History: Reports: Renal Calculus, UTI, Recurrent Endocrine/Metabolic History: Reports: Diabetes, Gestational Hematologic History: Reports: Anemia - Past Surgical History HEENT Surgical History: Reports: Tonsillectomy, Other (See Below) Other HEENT Surgeries/Procedures: Left neck cyst removed at age 7 Social & Family History - Family History Family Medical History: Noncontributory - Tobacco Use Smoking Status *Q: Never Smoker - Caffeine Use Caffeine Use: Reports: Coffee, Soda - Recreational Drug Use Recreational Drug Use: No - Sexual History Sexual History: Reports: Single Partner - Living Situation & Occupation Living situation: Reports: , with Significant Other Occupation: Employed ED ROS GENERAL - Review of Systems Review Of Systems: See Below Constitutional: Reports: Fever, Chills HEENT: Reports: No Symptoms Respiratory: Reports: No Symptoms Cardiovascular: Reports: No Symptoms Endocrine: Reports: No Symptoms GI/Abdominal: Reports: No Symptoms : Reports: No Symptoms Musculoskeletal: Reports: No Symptoms Skin: Reports: Other (Right breast pain and erythema) ED EXAM, SEPSIS - Physical Exam Exam: See Below Exam Limited By: No Limitations General Appearance: Alert, No Apparent Distress Ears: Normal External Exam Nose: Normal Inspection Head: Atraumatic, Normocephalic Neck: Normal Inspection Respiratory/Chest: No Respiratory Distress, Lungs Clear, Normal Breath Sounds Cardiovascular: Regular Rate, Rhythm, No Edema, No Murmur GI/Abdominal Exam: Soft, Non-Tender, No Organomegaly, No Mass Back: Normal Inspection Extremities: Normal Inspection Neurological: Alert, Oriented, No Motor/Sensory Deficits Skin: Other (Erythema and mild edema to the right lateral breast. No abnormal drainage noted.) Course - Vital Signs Last Recorded V/S: Last Vital Signs Temp 97.2 F 10/27/17 16:13 Pulse 112 H 10/27/17 16:13 Resp 20 10/27/17 16:13 BP 119/82 10/27/17 16:13 Pulse Ox 97 10/27/17 16:13 - Re-Assessments/Exams Free Text/Narrative Re-Assessment/Exam: 10/27/17 17:11 I have ordered an influenza today. 10/27/17 17:13 The influenza is negative. She has mastitis. I will get her on some keflex 500mg QID. 10/27/17 17:25 My nurse called OB and they did not have anyone available to come talk to her but the scheduled her for 11:30am on Sunday for a consult. Departure - Departure Time of Disposition: 17:30 Disposition: Home, Self-Care 01 Condition: Good Clinical Impression: Mastitis - Discharge Information Prescriptions: Cephalexin [Keflex] 500 mg PO Q6HR #40 cap Referrals: Huy Klein MD [Primary Care Provider] - 1 Week Forms: ED Department Discharge Additional Instructions: - Discharge Information Prescriptions: Cephalexin [Keflex] 500 mg PO Q6HR #40 cap Referrals: Huy Klein MD [Primary Care Provider] - 1 Week Forms: ED Department Discharge Keep pumping that will help with the mastitis. Put warm compresses on the affected area at least 3 times per day. Take the keflex every 6 hours hours or 4 times per day for 10 days. Follow up with Dr Klein in 1 week. One of our OB nurses that does consulting can see you on Sunday at 11:30 am. Please come to the front office developer to register. Ingris sullivan
== END 2017-10-27 18:20 | disposition home or self-care (01) ==
LOC: JD.ED 15:35
DX: O91.23 Nonpurulent mastitis associated with lactation (principal); Z88.0 Allergy status to penicillin
CPT/HCPCS: 87804; 99283; 99284

== ENCOUNTER 2017-12-01 07:37 | Emergency (ER) | payer OTHER ==
[2017-12-01 07:48] VITALS: BP 142/99
--- NOTE | 2017-12-01 07:54 | EDM.PDOC ---
ED HPI GENERAL MEDICAL PROBLEM - General Chief Complaint: Genitourinary Problem Stated Complaint: FLANK PAIN Time Seen by Provider: 12/01/17 07:54 - History of Present Illness INITIAL COMMENTS - FREE TEXT/NARRATIVE: 27-year-old female presents emergency room with fairly significant right-sided abdominal pain. Patient had a history of kidney stones in the past and this reminds her very much of this she did taken Katy at home and this has helped significantly. Patient had onset of symptoms several hours ago and had excruciating very severe right-sided pain this is responded favorably to the Katy. Patient denies any fevers or chills. She did have some intermittent discomfort yesterday afternoon. She's had some nausea. No diarrhea no constipation. Right Flank Pain Score (Numeric/FACES): 5 - Related Data Allergies Allergy/AdvReac Type Severity Reaction Status Date / Time Penicillins Allergy Rash Verified 12/01/17 07:43 Home Meds: Home Meds Ibuprofen [IJD: Ibuprofen] 600 mg PO Q6H PRN tablet 10/06/17 [Rx] Hydrocodone/Acetaminophen [Katy 5-325 Tablet] 1 - 2 each PO Q6H PRN #20 tablet 12/01/17 [Rx] Past Medical History Genitourinary History: Reports: Renal Calculus, UTI, Recurrent Endocrine/Metabolic History: Reports: Diabetes, Gestational Hematologic History: Reports: Anemia - Past Surgical History HEENT Surgical History: Reports: Tonsillectomy, Other (See Below) Other HEENT Surgeries/Procedures: Left neck cyst removed at age 7 Social & Family History - Family History Family Medical History: Noncontributory - Tobacco Use Smoking Status *Q: Never Smoker - Caffeine Use Caffeine Use: Reports: Coffee, Soda - Recreational Drug Use Recreational Drug Use: No - Sexual History Sexual History: Reports: Single Partner - Living Situation & Occupation Living situation: Reports: , with Significant Other Occupation: Employed ED ROS GENERAL - Review of Systems Review Of Systems: See Below Constitutional: Reports: No Symptoms Respiratory: Reports: No Symptoms Cardiovascular: Reports: No Symptoms GI/Abdominal: Reports: Abdominal Pain, Nausea. Denies: Constipation, Diarrhea, Vomiting : Reports: Flank Pain. Denies: Discharge, Dysuria, Frequency, Hematuria, Urgency ED EXAM, GI/ABD - Physical Exam Exam: See Below Exam Limited By: No Limitations General Appearance: Alert, No Apparent Distress Head: Atraumatic, Normocephalic Neck: Normal Inspection, Supple, Non-Tender, Full Range of Motion. No: Lymphadenopathy (L), Lymphadenopathy (R) Respiratory/Chest: No Respiratory Distress, Lungs Clear, Normal Breath Sounds Cardiovascular: Regular Rate, Rhythm, No Edema, No Murmur GI/Abdominal Exam: Normal Bowel Sounds, Soft, Other (She has some right-sided discomfort not worsened with palpation no suprapubic discomfort noted). No: Distended, Guarding, Rigid, Rebound Back Exam: Normal Inspection, CVA Tenderness (R) (Mild). No: CVA Tenderness (L) Extremities: Normal Inspection, No Pedal Edema Course - Vital Signs Last Recorded V/S: Last Vital Signs Temp 36.3 C 12/01/17 07:44 Pulse 86 12/01/17 07:44 Resp 17 12/01/17 07:44 BP 142/99 H 12/01/17 07:44 Pulse Ox 98 12/01/17 07:44 - Orders/Labs/Meds Labs: Laboratory Tests 12/01/17 12/01/17 12/01/17 Range/Units 07:53 07:53 09:30 Urine Color Yellow Yellow (Yellow) Urine Appearance Clear Clear (Clear) Urine pH 6.0 6.0 (5.0-8.0) Ur Specific [place] 1.015 1.015 (1.005-1.030) Urine Protein Negative Negative (Negative) Urine Glucose (UA) Negative Negative (Negative) Urine Ketones Negative Negative (Negative) Urine Occult Blood Trace-lysed H Negative (Negative) Urine Nitrite Negative Negative (Negative) Urine Bilirubin Negative Negative (Negative) Urine Urobilinogen 0.2 0.2 (0.2-1.0) Ur Leukocyte Esterase 3+ H Negative (Negative) Urine RBC 0-5 Not seen (0-5) /hpf Urine WBC >100 H Not seen (0-5) /hpf Ur Epithelial Cells 10-20 H Not seen (0-5) /hpf Urine Bacteria Few Not seen (FEW) /hpf Urine Mucus Not seen Not seen (FEW) /hpf Urine HCG, Qual Negative (NEGATIVE) - Re-Assessments/Exams Free Text/Narrative Re-Assessment/Exam: 12/01/17 10:12 Initial urinalysis appeared contaminated second UA was obtained which was done via mini catheter and this was entirely normal. Did review her records patient has had kidney stones in the past on this side we'll treat this like a kidney stone. Departure - Departure Time of Disposition: 10:13 Disposition: Home, Self-Care 01 Clinical Impression: Kidney stone on right side - Discharge Information Prescriptions: Hydrocodone/Acetaminophen [Katy 5-325 Tablet] 1 - 2 each PO Q6H PRN #20 tablet PRN Reason: Abdominal Pain Referrals: PCP,None [Primary Care Provider] - Forms: ED Department Discharge Additional Instructions: Return to the emergency room with any questions problems worsening symptoms. Return with any fevers or chills. Follow-up in the Hospital clinic this next week for recheck. [id number] You have been given a prescription for Katy, or hydrocodone take one or 2 every 6 hours as needed for pain. Allow 12 hours after using this medication before driving or returning to work.
== END 2017-12-01 10:32 | disposition home or self-care (01) ==
LOC: JD.ED 07:37
DX: N20.0 Calculus of kidney (principal)
CPT/HCPCS: 81001; 81025; 99284; P9612

== ENCOUNTER 2018-01-07 03:26 | Emergency (ER) | payer OTHER ==
[2018-01-07 03:39] VITALS: BP 153/90
[2018-01-07] MEDS ORDERED: Metoclopramide 10 MG/2 ML SDV IVPUSH ONE (03:49)
[2018-01-07] MEDS ORDERED: HYDROmorphone 1 MG/ML Syringe IVPUSH ONE (03:49)
--- NOTE | 2018-01-07 03:55 | EDM.PDOC ---
ED HPI GENERAL MEDICAL PROBLEM - General Chief Complaint: Flank Pain Stated Complaint: LOWER BACK PAIN HISTORY OF KIDNEY STONES Time Seen by Provider: 01/07/18 03:50 Source of Information: Reports: Patient, Family (spouse) History Limitations: Reports: No Limitations - History of Present Illness INITIAL COMMENTS - FREE TEXT/NARRATIVE: 27-year-old female who is known to suffer from recurrent renal colic presents to the ED with acute right flank pain now radiating down into the right hemiabdomen towards the groin. She states she went to bed about 2300 hrs. last evening and woke up about 2330 hrs. with the acute onset of right flank pain. Associated nausea and vomiting 1 at home of bilious material. No position is comfortable and the pain is worsening. Last renal colic attack was about a month ago and she thought she passed a stone. She has had about 5 previous attacks of renal colic. Currently has a feeling of need to void and she did defecate once since the pain came on. No previous abdominal surgery. Baby at home is about 3 and half months of age. Onset Date: 01/06/18 Onset Time: 23:30 Duration: Hour(s): Location: Reports: Abdomen (Radiates from right flank down of the right hemiabdomen towards the right groin.), Back (Right flank) Quality: Reports: Ache, Sharp, Stabbing, Other Severity: Severe (Strong colicky component to the pain current pain is 9 out of 10.) Improves with: Reports: None Worsens with: Reports: None Context: Denies: Activity, Exercise, Lifting, Sick Contact, Trauma, Other Associated Symptoms: Reports: Loss of Appetite, Nausea/Vomiting (1.). Denies: No Other Symptoms, Confusion, Chest Pain, Cough, cough w sputum, Diaphoresis, Fever/Chills, Headaches, Malaise, Seizure Treatments EXTENSION COURSE COUNSELOR: Reports: Other (see below) (None.) Right Lower Back Pain Score (Numeric/FACES): 9 - Related Data Allergies Allergy/AdvReac Type Severity Reaction Status Date / Time Penicillins Allergy Rash Verified 01/07/18 03:36 Home Meds: Home Meds Hydrocodone/Acetaminophen [[place] 5-325 Tablet] 1 - 2 each PO Q6H PRN #20 tablet 12/01/17 [Rx] Acetaminophen/HYDROcodone [[place] 325-5 MG] 1 - 2 tab PO Q4H #16 tablet 01/07/18 [Rx] Ondansetron [Zofran] 4 mg BUCCAL Q6H PRN #8 tab 01/07/18 [Rx] Past Medical History HEENT History: Reports: Impaired Vision Other HEENT History: Wears glasses Genitourinary History: Reports: Renal Calculus, UTI, Recurrent Endocrine/Metabolic History: Reports: Diabetes, Gestational Other Endocrine/Metabolic History: gestational diabetis Hematologic History: Reports: Anemia - Past Surgical History HEENT Surgical History: Reports: Tonsillectomy, Other (See Below) Other HEENT Surgeries/Procedures: Left neck cyst removed at age 7 Social & Family History - Family History Family Medical History: Noncontributory - Tobacco Use Smoking Status *Q: Never Smoker - Caffeine Use Caffeine Use: Reports: Coffee, Soda - Recreational Drug Use Recreational Drug Use: No - Sexual History Sexual History: Reports: Single Partner - Living Situation & Occupation Living situation: Reports: , with Significant Other Occupation: Employed ED ROS GENERAL - Review of Systems Review Of Systems: See Below Constitutional: Reports: Malaise, Weakness, Fatigue, Decreased Appetite. Denies : Fever, Chills HEENT: Reports: No Symptoms Respiratory: Reports: No Symptoms Cardiovascular: Reports: No Symptoms Endocrine: Reports: No Symptoms GI/Abdominal: Reports: Abdominal Pain (Right ashu-abdominal pain starting in the right flank rating down towards the right groin) : Reports: Flank Pain (Right side), Frequency, Urgency Musculoskeletal: Reports: Back Pain (Right flank pain) Skin: Reports: No Symptoms Neurological: Reports: No Symptoms Psychiatric: Reports: No Symptoms Hematologic/Lymphatic: Reports: No Symptoms Immunologic: Reports: No Symptoms ED EXAM, RENAL/ - Physical Exam Exam: See Below Exam Limited By: No Limitations General Appearance: Alert, WD/WN, Moderate Distress (In obvious discomfort.) Eye Exam: Bilateral Eye: Normal Inspection (Normal.) Head: Atraumatic, Normocephalic Neck: Normal Inspection, Supple, Non-Tender, Full Range of Motion. No: Lymphadenopathy (L), Lymphadenopathy (R) Respiratory/Chest: No Respiratory Distress, Lungs Clear, Normal Breath Sounds, No Accessory Muscle Use, Chest Non-Tender Cardiovascular: Normal Peripheral Pulses, Regular Rate, Rhythm, No Edema, No Gallop, No Murmur, No Rub, Bradycardia (56/m.) GI/Abdominal: Normal Bowel Sounds, Soft, Non-Tender, No Organomegaly, No Abnormal Bruit, No Mass, Pelvis Stable Back Exam: CVA Tenderness (R) (Mild). No: CVA Tenderness (L), Decreased Range of Motion, Muscle Spasm, Vertebral Tenderness Extremities: Normal Inspection, Normal Range of Motion, Non-Tender, No Pedal Edema Neurological: Alert, Oriented, CN II-XII Intact, Normal Cognition Psychiatric: Normal Affect, Normal Mood Skin Exam: Warm, Dry, Intact, Normal Color, No Rash Course - Vital Signs Last Recorded V/S: Last Vital Signs Temp 36.6 C 01/07/18 03:37 Pulse 54 L 01/07/18 03:37 Resp 16 01/07/18 03:37 BP 153/90 H 01/07/18 03:37 Pulse Ox 98 01/07/18 03:37 - Orders/Labs/Meds Orders: Active Orders 24 hr Category Date Time Status Abdomen Pelvis wo Cont [CT] Stat Exams 01/07/18 03:49 Taken URINALYSIS W/MICROSCOPIC [UA W/MICROSCOPIC] [URIN] Stat Lab 01/07/18 03:49 Uncollected Ketorolac [Toradol] Med 01/07/18 04:00 Active 30 mg IVPUSH ONETIME Sodium Chloride 0.9% [Normal Saline] 1,000 ml Med 01/07/18 04:00 Active IV ASDIRECTED Medication Orders Sodium Chloride (Normal Saline) 1,000 mls @ 150 mls/hr IV ASDIRECTED ITA Last Admin: 01/07/18 03:55 Dose: 150 mls/hr Ketorolac Tromethamine (Toradol) 30 mg IVPUSH ONETIME ITA Last Admin: 01/07/18 03:55 Dose: 30 mg Meds: Medications Generic Name Dose Route Start Last Admin Trade Name Freq PRN Reason Stop Dose Admin Sodium Chloride 1,000 mls @ 150 mls/hr 01/07/18 04:00 01/07/18 03:55 Normal Saline IV 150 mls/hr ASDIRECTED ITA Administration Ketorolac Tromethamine 30 mg 01/07/18 04:00 01/07/18 03:55 Toradol IVPUSH 30 mg ONETIME ITA Administration Discontinued Medications Generic Name Dose Route Start Last Admin Trade Name Freq PRN Reason Stop Dose Admin Hydromorphone HCl 0.5 mg 01/07/18 03:49 01/07/18 04:01 Dilaudid IVPUSH 01/07/18 03:50 0.5 mg ONETIME ONE Administration Metoclopramide HCl 7.5 mg 01/07/18 03:49 01/07/18 04:00 Reglan IVPUSH 01/07/18 03:50 7.5 mg ONETIME ONE Administration - Radiology Interpretation Free Text/Narrative:: 27-year-old female presents to the ED with acute onset of right flank and then right ashu-abdominal pain rating down towards the right groin. History of renal colic 5 in the past. Last attack was about a month ago. It's unclear whether or not the stone was truly passed at that time. She did not have any imaging done at that time to confirm size or place of stone. Currently vomiting 1. Plan IV normal saline at 150 mils per hour. Will give Toradol 30 mg IV with Dilaudid 0.5 mg IV and Reglan 7.5 mg IV. Urinalysis if one becomes available. CT abdomen per renal protocol. - Re-Assessments/Exams Free Text/Narrative Re-Assessment/Exam: 01/07/18 04:36 CT of the abdomen pelvis has been completed. It reveals moderate hydronephrosis of the right kidney with minimal perinephric stranding. There is a 6mm stone at the UVJ on the right side. Multiple calculi are noted within the parenchyma of both kidneys. Calculus in the left medullary is up to 5 mm in size. Count 6 small stones within the right kidney. No findings to suggest appendicitis. Pain is pretty well gone. Patient will be discharged home with a urinary sieve.Pain tablets to be [place] tabs 5/325 one or 2 every 4-6 hours needed for pain relief. Zofran 4 mg every 6-8 hours as needed for nausea relief. The stone is not passed in 2 weeks time she is to follow-up with urologist. Departure - Departure Time of Disposition: 04:47 Disposition: Home, Self-Care 01 Condition: Fair Clinical Impression: Renal colic on right side - Discharge Information Prescriptions: Acetaminophen/HYDROcodone [[place] 325-5 MG] 1 - 2 tab PO Q4H #16 tablet Ondansetron [Zofran] 4 mg BUCCAL Q6H PRN #8 tab PRN Reason: nausea or vomiting Referrals: PCP,None [Primary Care Provider] - Forms: ED Department Discharge Additional Instructions: Evaluation the emergency room this morning in regards to acute onset of right flank pain rating down to the right hemiabdomen characteristic of renal colic of which you've experienced many times in the past. You're treated with intravenous fluids and medications Toradol 30 mg with Dilaudid 0.5 mg and Reglan 7.5 mg to relieve pain and nausea. CT of the abdomen was carried out and reveals a 6 mm stone stuck at the UVJ which is the ureter junction with the bladder on the right side. This stone has about 80% chance of passage sometime over the next 2 weeks. Suggest straining the urine until stone is identified to have passed. A reoccurs take the [place] tabs 5/325 either one or 2 every 4-6 hours. If nausea is present may take Zofran 4 mg under the tongue every 4-6 hours as well. If pain is not controlled or vomiting occurs then return to the ED for pain management. If stone does not pass in the next 2 weeks then follow- up with urologist is advised. Your primary care physician could set this up in [place] as the are no urologists or visiting urologist in [place]. There are multiple stones in both kidneys that could be problematic for you in the future. Particular a 5 mm stone in the center of the left kidney will likely be the next culprit to cause pain. - My Orders Last 24 Hours: My Active Orders 01/07/18 03:49 Abdomen Pelvis wo Cont [CT] Stat URINALYSIS W/MICROSCOPIC [UA W/MICROSCOPIC] [URIN] Stat 01/07/18 04:00 Ketorolac [Toradol] 30 mg IVPUSH ONETIME Sodium Chloride 0.9% [Normal Saline] 1,000 ml IV ASDIRECTED - Assessment/Plan Last 24 Hours: My Active Orders 01/07/18 03:49 Abdomen Pelvis wo Cont [CT] Stat URINALYSIS W/MICROSCOPIC [UA W/MICROSCOPIC] [URIN] Stat 01/07/18 04:00 Ketorolac [Toradol] 30 mg IVPUSH ONETIME Sodium Chloride 0.9% [Normal Saline] 1,000 ml IV ASDIRECTED
[2018-01-07] MEDS ORDERED: Sodium Chloride 0.9% 1,000 ML ONE (03:58)
[2018-01-07] MEDS ORDERED: Ketorolac 30 MG/ML SDV ONE (03:58)
[2018-01-07] MEDS ORDERED: Sodium Chloride 0.9% 1,000 ML IV SCH (04:00)
[2018-01-07] MEDS ORDERED: Ketorolac 30 MG/ML SDV IVPUSH SCH (04:00)
[2018-01-07] MEDS ORDERED: HYDROmorphone 1 MG/ML Syringe ONE (04:03)
[2018-01-07] MEDS ORDERED: Metoclopramide 10 MG/2 ML SDV ONE (04:03)
--- NOTE | 2018-01-07 10:06 | CT ---
CT abdomen and pelvis Technique: Multiple axial sections were obtained from above the kidneys inferiorly through the pubic symphysis. Intravenous and oral contrast was not utilized. Study has been performed as a ureteral stone protocol. Findings: Multiple calcifications are seen within both kidneys measuring up to 5 mm. Right ureter is dilated with surrounding inflammatory change. These findings are caused by 6 mm obstructing stone located at the UPJ. Left ureter shows no abnormal calcifications. Visualized lung bases show nothing acute. Liver shows no focal abnormality. Spleen appears within normal limits. Adrenal glands show no nodule. Pancreas is within normal limits. Gallbladder contains no calcified gallstones. Aorta shows no aneurysmal dilatation. No retroperitoneal adenopathy or mesenteric abnormalities are seen. No pelvic mass or adenopathy is identified. Appendix is not definitely seen. Bone window settings were reviewed which appear within normal limits for the patient's age. Impression: 1. Right sided dilated ureter with surrounding inflammatory change caused by a 6 mm obstructing stone within the distal right ureter at the UPJ. 2. Multiple nonobstructing calculi within both kidneys measuring up to 5 mm in size. 3. No additional abnormality is appreciated on noncontrast CT study of the abdomen and pelvis performed as a ureteral stone protocol. Diagnostic code #3 Agree with preliminary report issued by [facility] ([facility] preliminary report dictated on 01/07/18, 5:24 AM Central Time)
== END 2018-01-07 05:00 | disposition home or self-care (01) ==
LOC: JD.ED 03:26
DX: N13.2 Hydronephrosis with renal and ureteral calculous obstruction (principal); Z88.0 Allergy status to penicillin
CPT/HCPCS: 74176; 96361; 96374; 96375; 99284; J1170; J1885; J2765; J7040

== ENCOUNTER 2018-12-11 17:03 | Emergency (ER) | payer OTHER ==
[2018-12-11 17:09] VITALS: BP 150/91
--- NOTE | 2018-12-11 18:25 | EDM.PDOC ---
ED HPI GENERAL MEDICAL PROBLEM - General Chief Complaint: General Stated Complaint: NEEDLE STICK Time Seen by Provider: 12/11/18 18:30 Source of Information: Reports: Patient History Limitations: Reports: No Limitations - History of Present Illness INITIAL COMMENTS - FREE TEXT/NARRATIVE: 28-year-old female presents for needle stick. 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 She reports that the resident has had labs drawn but they do not know the results as of yet. As of this point they do not believe the resident has any history of HIV or hepatitis. Per her retirement protocol she is to present to the ER for labs. She reports she irrigated the wound immediately. Patient does not have any history of HIV or hepatitis as far she is aware. She is otherwise healthy with no known medical conditions. Past menstrual period was November 29 and she denies any chance of . She will follow up with Dr. 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 - Related Data Allergies Allergy/AdvReac Type Severity Reaction Status Date / Time Penicillins Allergy Rash Verified 12/11/18 17:09 Home Meds: Home Meds Potassium Chloride 1 tab PO DAILY 12/11/18 [History] hydroCHLOROthiazide [Hydrochlorothiazide] 1 tab PO DAILY 12/11/18 [History] Past Medical History HEENT History: Reports: Impaired Vision Other HEENT History: Wears glasses Cardiovascular History: Reports: Hypertension Genitourinary History: Reports: Renal Calculus, UTI, Recurrent Endocrine/Metabolic History: Reports: Diabetes, Gestational Other Endocrine/Metabolic History: gestational diabetis Hematologic History: Reports: Anemia - Past Surgical History HEENT Surgical History: Reports: Tonsillectomy, Other (See Below) Other HEENT Surgeries/Procedures: Left neck cyst removed at age 7 Social & Family History - Family History Family Medical History: Noncontributory - Tobacco Use Smoking Status *Q: Never Smoker - Caffeine Use Caffeine Use: Reports: Coffee - Recreational Drug Use Recreational Drug Use: No - Sexual History Sexual History: Reports: Single Partner - Living Situation & Occupation Living situation: Reports: , with Significant Other Occupation: Employed ED ROS GENERAL - Review of Systems Review Of Systems: ROS reveals no pertinent complaints other than HPI. ED EXAM, GENERAL - Physical Exam Exam: See Below Exam Limited By: No Limitations General Appearance: Alert, WD/WN, No Apparent Distress Respiratory/Chest: No Respiratory Distress Extremities: Other (pin prick to the left thumb) Neurological: Alert, Oriented Psychiatric: Normal Affect, Normal Mood Skin Exam: Warm, Dry, Normal Color Course - Vital Signs Last Recorded V/S: Last Vital Signs Temp 97.9 F 12/11/18 17:06 Pulse 106 H 12/11/18 17:06 Resp 18 12/11/18 17:06 BP 150/91 H 12/11/18 17:06 Pulse Ox 98 12/11/18 17:06 - Orders/Labs/Meds Orders: Active Orders 24 hr Category Date Time Status HEPATITIS B SURF AB QUANT [REF] Stat Lab 12/11/18 18:45 Received Labs: Laboratory Tests 12/11/18 Range/Units 18:45 Hepatitis C Antibody Negative (NEGATIVE) HIV-1 Ab Rapid Screen Negative (NEGATIVE) - Re-Assessments/Exams Free Text/Narrative Re-Assessment/Exam: 12/11/18 18:32 Will call with labs if concerning. She will follow-up with Dr. Solis for further labs. Discharge instructions as documented. Departure - Departure Time of Disposition: 18:37 Disposition: Home, Self-Care 01 Condition: Fair Clinical Impression: Needle stick injury - Discharge Information *PRESCRIPTION DRUG MONITORING PROGRAM REVIEWED*: No *COPY OF PRESCRIPTION DRUG MONITORING REPORT IN PATIENT RAY: No Instructions: Needlestick Injury, [id number] Referrals: PCP,None [Primary Care Provider] - Kade Mccabe MD [Physician] - Forms: ED Department Discharge Additional Instructions: We will call you if you have any concerning labs. Follow-up with Dr. Valenzuela as planned. Please return to the ER should your symptoms change or worsen. - My Orders Last 24 Hours: My Active Orders 12/11/18 18:45 HEPATITIS B SURF AB QUANT [REF] Stat - Assessment/Plan Last 24 Hours: My Active Orders 12/11/18 18:45 HEPATITIS B SURF AB QUANT [REF] Stat
== END 2018-12-11 18:55 | disposition home or self-care (01) ==
LOC: JD.ED 17:03
DX: S61.032A Puncture wound without foreign body of left thumb without damage to nail, initial encounter (principal); I10 Essential (primary) hypertension; Z79.899 Other long term (current) drug therapy; Z88.0 Allergy status to penicillin; Z87.440 Personal history of urinary (tract) infections; Z90.89 Acquired absence of other organs; Z98.890 Other specified postprocedural states; W26.8XXA Contact with other sharp object(s), not elsewhere classified, initial encounter; Y93.89 Activity, other specified; Y92.129 Unspecified place in nursing home as the place of occurrence of the external cause
CPT/HCPCS: 36415; 86317; 86803; 99283; G0433

== ENCOUNTER 2020-03-30 06:52 | Inpatient (IN) | payer BC ==
[2020-03-30] MEDS ORDERED: Oxytocin/Lactated Ringers 10 UNIT/1,000 ML BAG IV SCH ×2 (12:15)
[2020-03-30] MEDS ORDERED: Ondansetron 4 MG/2 ML SDV IVPUSH PRN ×2 (12:15→23:23)
[2020-03-30] MEDS ORDERED: Nalbuphine 10 MG/ML Syringe IVPUSH PRN (12:15)
[2020-03-30] MEDS ORDERED: Sodium Chloride 0.9% 10 ML Syringe FLUSH PRN ×2 (12:15→22:26)
[2020-03-30] MEDS ORDERED: Lidocaine 1% 50 ML MDV INJECT ONE (12:15)
--- NOTE | 2020-03-30 14:48 | PCM.LDHP ---
L&D History of Present Illness - General Date of Service: 03/30/20 Admit Problem/Dx: Patient Status Order with Admit Dx/Problem 03/30/20 12:15 Patient Status [ADT] Routine Admission Diagnosis/Problem Admission Diagnosis/Problem 03/30/20 14:36 Leona is a 29-year-old 2 para 1001 white female at 39-1/7 weeks gestational age with an PIPE of 04/04/2020 who is admitted to observation status in labor and delivery on 03/30/2024 for induction of labor. Source of Information: Patient History Limitations: Reports: No Limitations - History of Present Illness Introduction:: Leona is a 29-year-old 2 para 1001 white female at 39-1/7 weeks gestational age with an PIPE of 04/04/2020 who is admitted to observation status in labor and delivery on 03/30/2024 for induction of labor.The procedure/process of labor and delivery induction is discussed in detail with patient. She appears understand, wishes to proceed. On last evaluation in clinic on 2019 for cervix is 2 cm dilated, 70% effaced, soft, midposition -3 station. She is reporting good activity. 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 Her PIPE of 04/04/2020 is determined by ultrasound done at 12-1/7 weeks gestational age. Her last menstrual period was less than certain starting on 07/05/2019. Menarche at age 15. Area cycles last 7 days and occur on a roughly monthly basis. Patient's had a second ultrasound done on 12/02/2019. Previous delivery was a female born on [birth year]04/2016 at 37-6/7 weeks gestational age after 18 hours of labor6 lbs. 6 oz. normal spontaneous vaginal deliveryno anesthesia per patient desire. Second-degree laceration. Child's name is Marilu Suarez. course: Patient was initially seen for this at 11-2/7 weeks gestational age. She is seen on a regular basis. Her weight gain was from 153.6 pounds up to 165 pounds for approximately a 12 pound increase. Her vital signs remained stable throughout the course. Group B strep negative. She plans to breast-feed. She desires no analgesia in labor. Her [place] depression screening score on 12/03/2019 was 1/30. She declined genetic testing. She did have a UTI in February 2020 treated with Macrobid. Patient had her influenza immunization on 09/14/2019. Her diphtheria, pertussis and tetanus immunization was on 01/28/2020. She is rubella immune. Hepatitis a immunizations 2014 hepatitis B immunizations 2004. Laboratory in shows her blood to be AB+ with a negative antibody screen. First hemoglobin was 12.0 g/dL. Platelets were 272,000. She is rubella immune. RPR is nonreactive. Urine culture initially was negative. Hepatitis B surface antigen and HIV assays were both negative. Chlamydia and gonorrhea tests were both negative. Second trimester testing showed a hemoglobin which is 12.3 g/dL. Her platelet count was 239,000 and her 1 hour GTT was 136. Her 3 hour glucose tolerance test was negative. Group B strep screen was negative. Allergies: An us on which causes a rash Medications: Cephalexin 250 mg 4 times a day for bladder infection earlier in the now has finished this. Patient had no problems with cephalosporins. 2. vitamins 1 by mouth daily Past medical history: Normal spontaneous vaginal delivery �1. 2. Ruptured ovarian cyst 2013 Past surgical history: 1. Tonsillectomy no prepped 2. Cyst removed from her neckleft side at age 7. Family history: Her is age 53 healthy except for hypertension. Father is age 66has diabetes and heart diseasehad a stent placed. Has hypertension. One brother age 30 alive and well. Maternal grandfather causes unknown. Maternal grandmother secondary to sepsis. Paternal grandparents history is unknown. Paternal uncle with prostate cancer. Other aunts and uncles positive for heart attack and heart disease. Mother also has a history of rheumatoid arthritis of recent onset and diagnosis. Social history: The patient is . 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 She is a college graduate. She and her family live in [place], [place]. Her is Tamara. She does not use any significant loss of alcohol, drugs or tobacco. Review of systems: In general patient has no complaints. Baby has been active. Patient has not had any significant contractions. Skin: Negative Lungs: No infectious symptoms or shortness of breath Cardiovascular: No chest pain or exercise intolerance Breasts: Changes associated with . GI: Negative : Body habitus changes associated with . Musculoskeletal: Negative Neurological: Negative In general the patient is well-developed, well-nourished, pleasant female of stated age in no acute distress. On last evaluation in clinic on 03/23/2020 her blood pressure was 124/76. Weight was 165 with pregravid weight 153.6. Height is 5 feet 2 inches. Pregravid BMI was 26.5. heart rate was 168. Skin is warm dry without lesions. HEENT, neck and back within normal limits. Lungs are clear with good breath sounds in all lung yepez. Cardiovascular exam shows regular and rhythm without murmurs. Breast exam is deferred having been done at time of her first visit and found to be normal is not repeated at this time. Patient does plan to breast -feed. Abdomen gravid with last fundal height on 03/15/2020 at 38 cm. Baby in vertex presentation by Chuck maneuvers.. Genital exam per digital shows cervix to be 3 cm, 80% effaced, -3 station but head well applied to the cervix, anterior, often. Baby is in cephalic presentation. Extremities and neurological exam are grossly within normal limits. 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: Endocrine/Metabolic History: Reports: Diabetes, Gestational Other Endocrine/Metabolic History: gestational DM with 1st Hematologic History: Reports: Anemia - Past Surgical History HEENT Surgical History: Reports: Tonsillectomy, Other (See Below) Other HEENT Surgeries/Procedures: Left neck cyst removed at age 7 Social & Family History - Family History Family Medical History: Noncontributory - Tobacco Use Smoking Status *Q: Former Smoker Used Tobacco, but Quit: No Second Hand Smoke Exposure: No - Caffeine Use Caffeine Use: Reports: None - Recreational Drug Use Recreational Drug Use: No - Sexual History Sexual History: Reports: Single Partner - Living Situation & Occupation Living situation: Reports: , with Significant Other Occupation: Employed H&P Review of Systems - Review of Systems: Review Of Systems: See Below L&D Exam - Exam Exam: See Below - Vital Signs Vital Signs: Last Vital Signs Temp 36.8 C 03/30/20 12:15 Pulse 94 03/30/20 12:15 Resp 16 03/30/20 12:15 BP 131/88 03/30/20 12:15 Pulse Ox 97 03/30/20 12:15 Weight: 75.296 kg - Patient Data Lab Results Last 24 hrs: Laboratory Results - last 24 hr 03/30/20 03/30/20 Range/Units 12:35 12:35 WBC 7.47 (3.98-10.04) K/mm3 RBC 3.68 L (3.98-5.22) M/mm3 Hgb 10.2 L D (11.2-15.7) gm/dl Hct 31.3 L (34.1-44.9) % MCV 85.1 (79.4-94.8) fl MCH 27.7 (25.6-32.2) pg MCHC 32.6 (32.2-35.5) g/dl RDW Std Deviation 39.4 (36.4-46.3) fL Plt Count 233 (182-369) K/mm3 MPV 8.5 L (9.4-12.3) fl Neut % (Auto) 64.1 (34.0-71.1) % Lymph % (Auto) 25.3 (19.3-51.7) % [place] % (Auto) 8.6 (4.7-12.5) % Eos % (Auto) 1.1 (0.7-5.8) Baso % (Auto) 0.1 (0.1-1.2) % Neut # (Auto) 4.79 (1.56-6.13) K/mm3 Lymph # (Auto) 1.89 (1.18-3.74) K/mm3 [place] # (Auto) 0.64 H (0.24-0.36) K/mm3 Eos # (Auto) 0.08 (0.04-0.36) K/mm3 Baso # (Auto) 0.01 (0.01-0.08) K/mm3 Blood Type AB POSITIVE Gel Antibody Screen Negative Result Diagrams: 03/30/20 12:35 Problem List Initiated/Reviewed/Updated: Yes Orders Last 24hrs: Active Orders 24 hr Category Date Time Status Patient Status [ADT] Routine ADT 03/30/20 12:15 Active Activity as Tolerated [RC] PFP Care 03/30/20 12:15 Active Communication Order [RC] ASDIRECTED Care 03/30/20 12:15 Active Heart Tones [RC] ASDIRECTED Care 03/30/20 12:15 Active Non Stress Test [RC] PER UNIT ROUTINE Care 03/30/20 12:15 Active Notify Provider [RC] PFP Care 03/30/20 12:15 Active Notify Provider [RC] PRN Care 03/30/20 12:15 Active Peripheral IV Care [RC] Q2HR Care 03/30/20 12:15 Active Pump Management, Intrathecal [RC] ASDIRECTED Care 03/30/20 12:17 Active Urinary Catheter Assessment [RC] ASDIRECTED Care 03/30/20 12:15 Active Vital Signs [RC] PER UNIT ROUTINE Care 03/30/20 12:15 Active Regular Diet [DIET] Diet 03/30/20 Breakfast Active RAPID PLASMA REAGIN,RPR [CHEM] Routine Lab 03/30/20 12:35 Received Lactated Ringers [Ringers, Lactated] 1,000 ml Med 03/30/20 12:15 Active IV ASDIRECTED Nalbuphine [Nubain] Med 03/30/20 12:15 Active 10 mg IVPUSH Q2H PRN Ondansetron [Zofran] Med 03/30/20 12:15 Active 4 mg IVPUSH Q4H PRN Oxytocin/Lactated Ringers [Pitocin in LR 10 Units/1,000 Med 03/30/20 12:15 Active ML] 10 unit in 1,000 ml IV .CONTINUOUS Oxytocin/Lactated Ringers [Pitocin in LR 10 Units/1,000 Med 03/30/20 12:15 Active ML] 10 unit in 1,000 ml IV TITRATE Sodium Chloride 0.9% [Saline Flush] Med 03/30/20 12:15 Active 10 ml FLUSH ASDIRECTED PRN Electronic Heart Tones Ext w TOCO [WOMSER] Oth 03/30/20 12:15 Ordered Routine Electronic Heart Tones Internal [WOMSER] Per Unit Oth 03/30/20 12:15 Ordered Routine Peripheral IV Insertion Adult [OM.PC] Routine Oth 03/30/20 12:15 Ordered Resuscitation Status Routine Resus Stat 03/30/20 12:15 Ordered Medication Orders Lactated Ringer's (Ringers, Lactated) 1,000 mls @ 100 mls/hr IV ASDIRECTED ITA Oxytocin/Lactated Ringer's (Pitocin In Lr 10 Units/1,000 Ml) 10 unit in 1,000 mls @ 12 mls/hr IV TITRATE ITA; Protocol Oxytocin/Lactated Ringer's (Pitocin In Lr 10 Units/1,000 Ml) 10 unit in 1,000 mls @ 100 mls/hr IV .CONTINUOUS ITA; Protocol Nalbuphine HCl (Nubain) 10 mg IVPUSH Q2H PRN PRN Reason: Pain Ondansetron HCl (Zofran) 4 mg IVPUSH Q4H PRN PRN Reason: Nausea/Vomiting Sodium Chloride (Saline Flush) 10 ml FLUSH ASDIRECTED PRN PRN Reason: Keep Vein Open Assessment/Plan Comment:: 1. 39-2/7 week intrauterine with PIPE of 04/04/2020 admitted for induction of labor. 2. Group B strep negative 3. Patient desires natural labor 4. Patient plans to breast-feed. 5. Patient has received her T Dap and her flu vaccination during this . 6. Patient is rubella immune. Plan: 1. Routine labor care. 2. Natural labor per patient preference. If decides on analgesia will proceed as desired 3. Support breast-feeding plan 4. RPR and CBC upon admission 5. Anticipate normal spontaneous vaginal delivery.
[2020-03-30] MEDS: Lactated Ringers 1,000 ML IV SCH (20:43)
[2020-03-30] MEDS ORDERED: Metoclopramide 10 MG/2 ML SDV ONE (22:12)
[2020-03-30] MEDS ORDERED: Citric Acid/Sodium Citrate Solution 30 ML Cup ONE (22:13)
[2020-03-30] MEDS ORDERED: Azithromycin 500 MG in Sodium Chloride 0.9% 250 ML IV ONE (22:24)
[2020-03-30] MEDS ORDERED: Metoclopramide 10 MG/2 ML SDV IVPUSH ONE (22:26)
[2020-03-30] MEDS ORDERED: ceFAZolin 2 GM in Premix Bag 1 BAG IV ONE (22:26)
[2020-03-30] MEDS ORDERED: Citric Acid/Sodium Citrate Solution 30 ML Cup PO ONE (22:26)
--- NOTE | 2020-03-30 22:36 | PCM.SN.2 ---
- Free Text/Narrative Note: Patient progressed to approximately 5+ centimeters and on nursing evaluation the presenting part was felt to be breech. This is confirmed with ultrasound. Discussion was held patient as to the risks and benefits of breech vaginal delivery versus primary section. The risks of section including allergy, anesthesia, bleeding, blood clots, infection, injury and other potential concerns all discussed in detail with patient and her . They wish to proceed with surgery section. Incentive signed. Preoperative Reglan, Bicitra are given. Type and screen is done. Proceed with section.
[2020-03-30] MEDS ORDERED: Morphine PF 1 MG/ML Amp ONE (22:39)
[2020-03-30] MEDS ORDERED: Oxytocin 10 Units/1 ML SDV ONE (22:40)
[2020-03-30] MEDS ORDERED: Bupivacaine 0.5% 30 ML SDV ONE (22:43)
--- NOTE | 2020-03-30 22:50 | PCM.PREANE ---
Preanesthetic Assessment - Anesthesia/Transfusion/Family Hx Anesthesia History: Prior Anesthesia Without Reaction Transfusion History: Prior Transfusion Without Reaction - Review of Systems General: No Symptoms Pulmonary: No Symptoms Cardiovascular: No Symptoms Gastrointestinal: No Symptoms Neurological: No Symptoms Other: Reports: None - Physical Assessment NPO Status Date: 03/30/20 NPO Status Time: 18:30 Vital Signs: Last Vital Signs Temp 98.3 F 03/30/20 12:15 Pulse 94 03/30/20 12:15 Resp 16 03/30/20 12:15 BP 131/88 03/30/20 12:15 Pulse Ox 97 03/30/20 12:15 Height: 1.57 m Weight: 75.296 kg ASA Class: 2E Mental Status: Alert & Oriented x3 Airway Class: Mallampati = 1 Dentition: Reports: Normal Dentition Thyro-Mental Finger Breadths: 3 Mouth Opening Finger Breadths: 3 ROM/Head Extension: Full Lungs: Clear to Auscultation, Normal Respiratory Effort Cardiovascular: Regular Rate, Regular Rhythm - Lab Values: Laboratory Last Values WBC 7.47 K/mm3 (3.98-10.04) 03/30/20 12:35 RBC 3.68 M/mm3 (3.98-5.22) L 03/30/20 12:35 Hgb 10.2 gm/dl (11.2-15.7) L D 03/30/20 12:35 Hct 31.3 % (34.1-44.9) L 03/30/20 12:35 MCV 85.1 fl (79.4-94.8) 03/30/20 12:35 MCH 27.7 pg (25.6-32.2) 03/30/20 12:35 MCHC 32.6 g/dl (32.2-35.5) 03/30/20 12:35 RDW Std Deviation 39.4 fL (36.4-46.3) 03/30/20 12:35 Plt Count 233 K/mm3 (182-369) 03/30/20 12:35 MPV 8.5 fl (9.4-12.3) L 03/30/20 12:35 Neut % (Auto) 64.1 % (34.0-71.1) 03/30/20 12:35 Lymph % (Auto) 25.3 % (19.3-51.7) 03/30/20 12:35 [place] % (Auto) 8.6 % (4.7-12.5) 03/30/20 12:35 Eos % (Auto) 1.1 (0.7-5.8) 03/30/20 12:35 Baso % (Auto) 0.1 % (0.1-1.2) 03/30/20 12:35 Neut # (Auto) 4.79 K/mm3 (1.56-6.13) 03/30/20 12:35 Lymph # (Auto) 1.89 K/mm3 (1.18-3.74) 03/30/20 12:35 [place] # (Auto) 0.64 K/mm3 (0.24-0.36) H 03/30/20 12:35 Eos # (Auto) 0.08 K/mm3 (0.04-0.36) 03/30/20 12:35 Baso # (Auto) 0.01 K/mm3 (0.01-0.08) 03/30/20 12:35 RPR Non-reactive (NONREACTIVE) 03/30/20 12:35 Blood Type AB POSITIVE 03/30/20 12:35 Gel Antibody Screen Negative 03/30/20 12:35 - Allergies Allergies/Adverse Reactions: Allergies Allergy/AdvReac Type Severity Reaction Status Date / Time Penicillins Allergy Mild Rash Verified 03/30/20 12:35 - Acknowledgements Anesthesia Type Planned: Spinal Pt an Appropriate Candidate for the Planned Anesthesia: Yes Alternatives and Risks of Anesthesia Discussed w Pt/Guardian: Yes Pt/Guardian Understands and Agrees with Anesthesia Plan: Yes PreAnesthesia Questionnaire HEENT History: Reports: Impaired Vision Other HEENT History: Wears glasses Cardiovascular History: Reports: Hypertension Other Cardiovascular History: HTN with of 1st baby Genitourinary History: Reports: Renal Calculus, UTI, Recurrent 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: Endocrine/Metabolic History: Reports: Diabetes, Gestational Other Endocrine/Metabolic History: gestational DM with 1st Hematologic History: Reports: Anemia - Past Surgical History HEENT Surgical History: Reports: Tonsillectomy, Other (See Below) Other HEENT Surgeries/Procedures: Left neck cyst removed at age 7 - SUBSTANCE USE Smoking Status *Q: Former Smoker Second Hand Smoke Exposure: No Recreational Drug Use History: No - HOME MEDS Home Medications: Home Meds Pnv No.95/Ferrous Fum/Folic AC [ Tablet] 1 tab PO DAILY 03/30/20 [ History] - CURRENT (IN HOUSE) MEDS Current Meds: Current Medications Lactated Ringer's (Ringers, Lactated) 1,000 mls @ 100 mls/hr IV ASDIRECTED ITA Last Admin: 03/30/20 20:43 Dose: 100 mls/hr Oxytocin/Lactated Ringer's (Pitocin In Lr 10 Units/1,000 Ml) 10 unit in 1,000 mls @ 12 mls/hr IV TITRATE ITA; Protocol Last Admin: 03/30/20 20:41 Dose: 2 munits/min, 12 mls/hr Oxytocin/Lactated Ringer's (Pitocin In Lr 10 Units/1,000 Ml) 10 unit in 1,000 mls @ 100 mls/hr IV .CONTINUOUS ITA; Protocol Azithromycin 500 mg/ Sodium (Chloride) 250 mls @ 250 mls/hr IV ONETIME ONE Stop: 03/30/20 23:23 Cefazolin Sodium/Dextrose 2 gm (/ Premix) 50 mls @ 100 mls/hr IV ONETIME ONE Stop: 03/30/20 22:55 Nalbuphine HCl (Nubain) 10 mg IVPUSH Q2H PRN PRN Reason: Pain Ondansetron HCl (Zofran) 4 mg IVPUSH Q4H PRN PRN Reason: Nausea/Vomiting Sodium Chloride (Saline Flush) 10 ml FLUSH ASDIRECTED PRN PRN Reason: Keep Vein Open Sodium Chloride (Saline Flush) 10 ml FLUSH ASDIRECTED PRN PRN Reason: Keep Vein Open Discontinued Medications Citric Acid/Sodium Citrate (Bicitra Solution) 30 ml PO ONETIME ONE Stop: 03/30/20 22:27 Last Admin: 03/30/20 22:38 Dose: 30 ml Lidocaine HCl (Xylocaine 1%) 50 ml INJECT ONETIME ONE Stop: 03/30/20 12:16 Metoclopramide HCl (Reglan) 10 mg IVPUSH ONETIME ONE Stop: 03/30/20 22:27 Last Admin: 03/30/20 22:38 Dose: 10 mg Morphine Sulfate (Duramorph Pf) Confirm Administered Dose 1 mg .ROUTE .STK-MED ONE Stop: 05/05/20 22:40 Oxytocin (Pitocin) Confirm Administered Dose 20 unit .ROUTE .[employer] [employer] [facility] Stop: 03/30/20 22:41
[2020-03-30] MEDS ORDERED: ceFAZolin 1 GM Vial ONE (22:54)
[2020-03-30] MEDS ORDERED: Lactated Ringers 1,000 ML ONE (23:17)
[2020-03-30] MEDS ORDERED: fentaNYL 100 MCG/2 ML SDV IVPUSH PRN (23:23)
[2020-03-30] MEDS ORDERED: diphenhydrAMINE 50 MG/ML SDV IVPUSH PRN (23:23)
[2020-03-30] MEDS ORDERED: Ketorolac 30 MG/ML SDV ONE (23:37)
--- NOTE | 2020-03-30 23:54 | PCM.OPNOTE ---
- General Post-Op/Procedure Note Date of Surgery/Procedure: 03/30/20 Operative Procedure(s): Primary lower uterine segment transverse section through Pfannenstiel skin incision Findings: Baby was found to be in a mo breech presentation. Amniotic fluid was clear but with some terminal meconium upon delivery of the baby. Uterus tubes are is consistent with term . Pre Op Diagnosis: 1. 39-2/7 week intrauterine . 2. Mo breech presentation Post-Op Diagnosis: Same with delivery of a viable, 7 lbs. 8 oz. female infant with Apgars of 8 and 8 at 2312 hrs. 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 Fluid Replacement, Intraop: 1,800 Output, Urine Amount: 100 EBL in mLs: 500 Drain/Tube Comments:: Indwelling bladder catheter Complications: None Condition: Good Free Text/Narrative:: Surgery duration: 25 minutes Surgery duration: Procedure: The patient is appropriately consented. Patient was transferred to the room and placed in a sitting position. Spinal anesthesia was administered. After confirmation of adequate anesthesia patient was placed in a supine position with a wedge under her right side to facilitate left lateral positioning. The patient was prepped and draped in usual fashion after Edmond catheter was already placed . The anesthetic was checked and found to be adequate. 20 mL of Marcaine 0.5% was injected locally in the Pfannenstiel incision site. The Pfannenstiel skin incision was then made and carried down through skin, subcutaneous and fascial layers. The fascia was then undermined superiorly and inferiorly to allow for adequate operating room. The recti muscles midline and preperitoneal fat was bluntly dissected. Peritoneal cavity was entered longitudinally. The vesicouterine peritoneum was then incised transversely and bladder flap was developed. Myometrium was incised transversely to the level of the amniotic sac. This incision was extended bilaterally in a blunt fashion. The amniotic sac was then ruptured resulting in clear amniotic fluid. A hand is placed in the low uterine segment and the baby's breech was brought forth through the incision. The baby was completely delivered using fundal pressure in a complete breech extraction technique in a routine fashion. The nose and mouth were bulb suctioned. Baby's cord was clamped x2 cut and baby was handed off to attending cnc machine setter Dr Trejo. Placenta was expressed after cord blood was obtained. Uterus was then exteriorized to allow for easier closure. The cervix was assessed and found to be dilated adequately to allow egress of blood. The uterus was closed in 2 layers. The first layer a running locked suture of 0 Monocryl, the second layer a running locked vertical mattress suture of 0 Monocryl. [id number] suture was placed at mid incision to control 1 bleeder. Hemostasis confirmed at this time. Sponge instrument needle counts are correct. The uterus was returned to the abdominal cavity and lateral gutters were cleared of blood. Once again sponge needle counts are correct. The anterior abdominal wall was closed with a #1 PDS suture from angle to angle. The subcutaneous area was found to be free of any bleeders. Skin was closed with a running subcuticular stitch of 3-0 Monocryl in a vertical mattress suture fashion using a Kapil needle. Prineo mesh /glue was then applied to further approximate the incision. It should be noted that patient received 2 g of Ancef preoperatively for infection prophylaxis and had Pitocin infused after delivery of the placenta to facilitate uterine contraction. She also had sequential compression stockings in place for DVT prophylaxis. Patient was discharged from the operating room in satisfactory condition.
--- NOTE | 2020-03-30 23:56 | PCM.POSTAN ---
POST ANESTHESIA ASSESSMENT - MENTAL STATUS Mental Status: Alert, Oriented - VITAL SIGNS Vital Signs: Last Vital Signs Temp 98.2 F 03/30/20 23:42 Pulse 94 03/30/20 12:15 Resp 20 03/30/20 23:42 BP 138/80 03/30/20 23:42 Pulse Ox 96 03/30/20 23:42 - RESPIRATORY Respiratory Status: Respiratory Rate WNL, Airway Patent, O2 Saturation Stable - CARDIOVASCULAR CV Status: Pulse Rate WNL, Blood Pressure Stable - GASTROINTESTINAL GI Status: No Symptoms - PAIN Pain Score: 0 (post SAB) - POST OP HYDRATION Hydration Status: Adequate & Stable
[2020-03-31] MEDS: Lactated Ringers 1,000 ML IV SCH (00:05)
[2020-03-31] MEDS ORDERED: Dextrose 5%-Lactated Ringers 1,000 ML IV SCH (01:01)
[2020-03-31] MEDS ORDERED: Docusate Sodium 100 MG Cap PO PRN (01:01)
[2020-03-31] MEDS ORDERED: Acetaminophen/oxyCODONE 325-5 MG Tab PO PRN ×2 (01:01)
[2020-03-31] MEDS ORDERED: Ondansetron 4 MG/2 ML SDV IV PRN (01:01)
[2020-03-31] MEDS ORDERED: diphenhydrAMINE 50 MG/ML SDV IVPUSH PRN (01:01)
[2020-03-31] MEDS ORDERED: Naloxone 0.4 MG/ML SDV IVPUSH PRN (01:01)
[2020-03-31] MEDS ORDERED: ePHEDrine 50 MG/ML SDV IVPUSH PRN (01:01)
[2020-03-31] MEDS: Ibuprofen 600 MG Tab PO SCH ×3 (05:41→17:33)
--- NOTE | 2020-03-31 07:11 | PCM.SN.2 ---
- Free Text/Narrative Note: note: Postoperative day #1 Patient is doing well in the period. Minimal lochia, catheter is still in place. Nursing without concerns. Patient is afebrile, vital signs are stable Lungs are clear with good breath sounds in all lung yepez. Cardiovascular exam shows regular rate and rhythm. Abdomen is flat, soft, uterus is below the umbilicus and is firm and nontender. Incision is relatively dry, intact. No evidence of infection, hematoma or seroma. Legs are nontender. CBC pending Assessment: /postoperative day #1 recovery going well. Plan: Routine postoperative care. Patient be discharged home within the next 24- 48 hours.
--- NOTE | 2020-03-31 08:05 | PCM48HPAN ---
Post Anesthesia Note - EVALUATION WITHIN 48HRS OF ANESTHETIC Vital Signs in Normal Range: Yes Patient Participated in Evaluation: Yes Respiratory Function Stable: Yes Airway Patent: Yes Cardiovascular Function Stable: Yes Hydration Status Stable: Yes Pain Control Satisfactory: Yes Nausea and Vomiting Control Satisfactory: Yes Mental Status Recovered: Yes Vital Signs: Last Vital Signs Temp 98.4 F 03/31/20 06:04 Pulse 78 03/31/20 06:04 Resp 14 03/31/20 06:04 BP 114/63 03/31/20 06:04 Pulse Ox 99 03/31/20 06:04
[2020-03-31] MEDS: Prenatal Multivitamin with Calcium/Folic Acid/Iron Tab PO SCH (10:16)
[2020-03-31] MEDS: Simethicone 80 MG Tab.Chew PO SCH ×4 (10:17→22:26)
[2020-04-01] MEDS: Ibuprofen 600 MG Tab PO SCH ×2 (00:12→06:02)
--- NOTE | 2020-04-01 06:53 | PCM.SN.2 ---
- Free Text/Narrative Note: note: Patient is doing well in the period. Minimal lochia, voiding well, ambulated without problems. Nursing some concerns but generally doing reasonably well. His difficulty with voiding last night but this appears to straighten out at this time. Residual urine was an acceptable level after voiding last evening. Patient is afebrile, vital signs are stable Abdomen is flat, soft, uterus is below the umbilicus and is firm and nontender. Incision appears to be intact, Prineo mesh is in place and secure. Incision appears to be healing well. Legs are nontender. Hemoglobin yesterday was 8.9, platelets were 215,000. Assessment: 1. Anemia secondary to surgical blood loss, hemodilution and anemia of 2. recovery going well. Some challenges as far is nursing a concern that these are being managed through consultation. Plan: Routine postop care. Patient be discharged home within the next 24-48 hours. Hemoglobin 0.9, platelet count 215,000.
[2020-04-01] MEDS: Prenatal Multivitamin with Calcium/Folic Acid/Iron Tab PO SCH (09:18)
[2020-04-01] MEDS: Simethicone 80 MG Tab.Chew PO SCH (09:18)
--- NOTE | 2020-04-01 10:08 | PCM.DCSUM1 ---
Discharge Summary - Hospital Course Free Text/Narrative:: Leona is a 29-year-old 2 para 1001 white female at 39-1/7 weeks gestational age with an PIPE of 04/04/2020 who is admitted to observation status in labor and delivery on 03/30/2024 for induction of labor. She underwent Pitocin induction with AROM augmentation but was then found to have a mo breech presenting . Decision was made to proceed to primary lower uterine segment transverse section through Pfannenstiel skin incision under a spinal block. This was performed on 03/30/2020. Findings at the time of surgery were as follows: Baby was found to be in a mo breech presentation. Amniotic fluid was clear but with some terminal meconium upon delivery of the baby. Uterus tubes were consistent with term . She delivered a viable, simental, 7 lbs. 8 oz. female infant with Apgars of 8 and 8 at 2312 hrs. on 03/30. patient is done well. Pain initially was controlled with Duramorph given in the spinal block. She was started with IV Toradol �1 dose and switched to by mouth Motrin 800 mg every 8 hours. She has done well with this. She is considering taking some Percocet if she goes home becomes more active. She would like a prescription for this. She is nursing without problems. On the evening of the first postoperative day patient had some discomfort in the area of the bladder and was found to have a distended bladder at and was unable to void. On straight catheter emptied thousand 100 mL of urine. She has had no problems voiding since that time. Her lochia is minimal. She is ambulating well and breast-feeding is going very well. She is desiring discharge home. Condition: Good Diagnosis: Stroke: No - Discharge Data Discharge Date: 04/01/20 Discharge Disposition: Home, Self-Care 01 Condition: Good - Referral to Home Health Primary Care Physician: Huy Klein MD - Patient Summary/Data Operative Procedure(s) Performed: Primary lower uterine segment transverse section through Pfannenstiel skin incision - Patient Instructions Diet: Regular Diet as Tolerated (Nursing diet with increase calories and calcium as directed.) Activity: As Tolerated (No intercourse or tampons until bleeding results. No lifting greater than 15 pounds or driving a car �1 week.) Driving: Do Not Drive Showering/Bathing: May Shower Wound/Incision Care: Keep Operative Site/Wound Site Clean and Dry Notify Provider of: Fever, Increased Pain, Swelling and Redness, Drainage, Nausea and/or Vomiting - Discharge Plan Prescriptions/Med Rec: Ferrous Sulfate 325 mg PO DAILY #100 tablet Home Medications: Home Meds Pnv No.95/Ferrous Fum/Folic AC [ Tablet] 1 tab PO DAILY 03/30/20 [ History] Acetaminophen/oxyCODONE [Percocet 325-5 MG] 1 tab PO Q4H PRN tablet 04/01/20 [ Rx] Ferrous Sulfate 325 mg PO DAILY #100 tablet 04/01/20 [Rx] Ibuprofen [Motrin] 600 mg PO Q6H tablet 04/01/20 [Rx] Referrals: Huy Klein MD [Primary Care Provider] - (Patient is to return to clinic in 2 weeks for postoperative follow-up with Dr. Klein.) - Discharge Summary/Plan Comment DC Time >30 min.: No Discharge Summary/Plan Comment: Discharge instructions: 1. Discharge home 2. Diet, activity and follow-up discussed with patient. Recommend nursing diet with increased calories and calcium. 3. Precautions given concern increased pain, bleeding, temperature, signs/ symptoms of DVT/PE. 4. Medications per home medication was printed, discussed with and given to the patient. 5. Return to clinic-Dr. Klein-[facility] in 2 weeks. Diagnosis: Term -delivered Condition: Good - Patient Data Vitals - Most Recent: Last Vital Signs Temp 37.0 C 04/01/20 03:00 Pulse 91 04/01/20 03:00 Resp 16 04/01/20 03:00 BP 134/87 04/01/20 03:00 Pulse Ox 93 L 04/01/20 03:00 Weight - Most Recent: 75.296 kg I&O - Last 24 hours: Intake & Output 03/31/20 04/01/20 04/01/20 22:59 06:59 14:59 Output Total 1350 1350 Balance -1350 -1350 Med Orders - Current: Current Medications Diphenhydramine HCl (Benadryl) 25 mg IVPUSH Q6H PRN PRN Reason: Itching or Nausea Docusate Sodium (Colace) 100 mg PO Q12H PRN PRN Reason: Constipation Ephedrine Sulfate (Ephedrine Sulfate) 5 mg IVPUSH SEECOMMENT PRN PRN Reason: Other Ibuprofen (Motrin) 600 mg PO Q6H [facility] Last Admin: 04/01/20 06:02 Dose: 600 mg Naloxone HCl (Narcan) 0.1 mg IVPUSH SEECOMMENT PRN PRN Reason: Respiratory Depression Ondansetron HCl (Zofran) 4 mg IV Q4H PRN PRN Reason: Nausea/Vomiting Oxycodone/Acetaminophen (Percocet 325-5 Mg) 2 tab PO Q4H PRN PRN Reason: Pain (severe 7-10) Oxycodone/Acetaminophen (Percocet 325-5 Mg) 1 tab PO Q4H PRN PRN Reason: Pain (moderate 4-6) Prenat Multivit/Administration Internship/Iron/Folic Ac ( Plus Iron) 1 each PO DAILY [facility] Last Admin: 04/01/20 09:18 Dose: 1 each Simethicone (Simethicone) 160 mg PO QID [facility] Last Admin: 04/01/20 09:18 Dose: 160 mg Discontinued Medications Bupivacaine HCl (Marcaine 0.5%) Confirm Administered Dose 30 ml .ROUTE .STK-MED ONE Stop: 03/30/20 22:44 Last Admin: 03/30/20 23:10 Dose: 20 ml Cefazolin Sodium (Ancef) Confirm Administered Dose 2 gm .ROUTE .STK-MED ONE Stop: 03/30/20 22:55 Citric Acid/Sodium Citrate (Bicitra Solution) 30 ml PO ONETIME ONE Stop: 03/30/20 22:27 Last Admin: 03/30/20 22:38 Dose: 30 ml Diphenhydramine HCl (Benadryl) 25 mg IVPUSH Q6H PRN PRN Reason: Pruritis Fentanyl (Sublimaze) 50 mcg IVPUSH Q5M PRN PRN Reason: Pain Lactated Ringer's (Ringers, Lactated) 1,000 mls @ 100 mls/hr IV ASDIRECTED [facility] Last Admin: 03/31/20 00:05 Dose: 100 mls/hr Oxytocin/Lactated Ringer's (Pitocin In Lr 10 Units/1,000 Ml) 10 unit in 1,000 mls @ 12 mls/hr IV TITRATE [facility]; Protocol Last Admin: 03/30/20 20:41 Dose: 2 munits/min, 12 mls/hr Oxytocin/Lactated Ringer's (Pitocin In Lr 10 Units/1,000 Ml) 10 unit in 1,000 mls @ 100 mls/hr IV .CONTINUOUS ITA; Protocol Azithromycin 500 mg/ Sodium (Chloride) 250 mls @ 250 mls/hr IV ONETIME ONE Stop: 03/30/20 23:23 Last Admin: 03/31/20 01:21 Dose: Not Given Cefazolin Sodium/Dextrose 2 gm (/ Premix) 50 mls @ 100 mls/hr IV ONETIME ONE Stop: 03/30/20 22:55 Last Admin: 03/31/20 01:22 Dose: Not Given Lactated Ringer's (Ringers, Lactated) Confirm Administered Dose 1,000 mls @ as directed .ROUTE .STK-MED ONE Stop: 03/30/20 23:18 Dextrose/Lactated Ringer's (Dextrose 5%-Lactated Ringers) 1,000 mls @ 125 mls/ hr IV ASDIRECTED ITA Stop: 03/31/20 09:00 Last Admin: 03/31/20 05:41 Dose: 125 mls/hr Ketorolac Tromethamine (Toradol) Confirm Administered Dose 30 mg .ROUTE .STK- MED ONE Stop: 03/30/20 23:38 Lidocaine HCl (Xylocaine 1%) 50 ml INJECT ONETIME ONE Stop: 03/30/20 12:16 Last Admin: 03/31/20 01:20 Dose: Not Given Metoclopramide HCl (Reglan) 10 mg IVPUSH ONETIME ONE Stop: 03/30/20 22:27 Last Admin: 03/30/20 22:38 Dose: 10 mg Miscellaneous Medication (Phenylephrine 1 Mg/10 Ml-Ns) Confirm Administered Dose 1 mg IV .STK-MED ONE Stop: 03/30/20 23:26 Morphine Sulfate (Duramorph Pf) Confirm Administered Dose 1 mg .ROUTE .STK-MED ONE Stop: 03/30/20 22:40 Nalbuphine HCl (Nubain) 10 mg IVPUSH Q2H PRN PRN Reason: Pain Ondansetron HCl (Zofran) 4 mg IVPUSH Q4H PRN PRN Reason: Nausea/Vomiting Ondansetron HCl (Zofran) 4 mg IVPUSH ONETIME PRN PRN Reason: Nausea/Vomiting Oxytocin (Pitocin) Confirm Administered Dose 20 unit .ROUTE .[facility] ONE Stop: 03/30/20 22:41 Sodium Chloride (Saline Flush) 10 ml FLUSH ASDIRECTED PRN PRN Reason: Keep Vein Open Sodium Chloride (Saline Flush) 10 ml FLUSH ASDIRECTED PRN PRN Reason: Keep Vein Open
[2020-04-01 11:27] VITALS: BP 127/84; PULSE 84
== END 2020-04-01 13:40 | disposition home or self-care (01) | DRG 540 ==
LOC: JD.OB 11:54 → OBSVTOIN 23:12 → JD.OB 23:13
PROVIDERS: ADMIT Obstetrics & Gynecology; ATTEND Obstetrics & Gynecology
PROC: 10D00Z1 Extraction of Products of Conception, Low, Open Approach (ICD-10-PCS; principal; 2020-03-30)
PROC: 10907ZC Drainage of Amniotic Fluid, Therapeutic from Products of Conception, Via Natural or Artificial Opening (ICD-10-PCS; 2020-03-30)
PROC: 3E033VJ Introduction of Other Hormone into Peripheral Vein, Percutaneous Approach (ICD-10-PCS; 2020-03-30)
DX: O32.1XX0 Maternal care for breech presentation, not applicable or unspecified (principal); Z3A.39 39 weeks gestation of pregnancy; Z37.0 Single live birth; O16.4 Unspecified maternal hypertension, complicating childbirth; O99.02 Anemia complicating childbirth; D64.9 Anemia, unspecified; O77.0 Labor and delivery complicated by meconium in amniotic fluid
CPT/HCPCS: 01961; 36415; 51701; 51798; 59025; 85025; 86592; 86850; 86900; 86901; 94762; A9270-GY; J0690; J1885; J2274; J2370; J2590; J2765; J3490; J7120; J7121